=== PATIENT | female | born 1955 | race Caucasian/White ===

== ENCOUNTER → 2017-07-21 | Outpatient (REF) | payer OTHER, BC | LOC: M LAB REF 09:46 | PROVIDERS: ATTEND Physician Assistant Medical | DX: N39.0 Urinary tract infection, site not specified (principal) ==

== ENCOUNTER 2018-02-27 09:17 | Day surgery (SDC) | payer BC, OTHER ==
[2018-02-27] MEDS ORDERED: NS 1,000 ML IV (11:00)
[2018-02-27] MEDS ORDERED: PROPOFOL 500 MG/50 ML VIAL As Ordered (11:24)
[2018-02-27] MEDS ORDERED: LIDOCAINE 2% INJ 100 MG/5 ML SDV (FOR ANES.) As Ordered (11:24)
== END 2018-02-27 12:14 | disposition home or self-care (01) ==
LOC: M OPP 09:17
DX: Z12.11 Encounter for screening for malignant neoplasm of colon (principal); Z86.010 Personal history of colon polyps; Z80.0 Family history of malignant neoplasm of digestive organs; D12.2 Benign neoplasm of ascending colon; D12.5 Benign neoplasm of sigmoid colon; K57.30 Diverticulosis of large intestine without perforation or abscess without bleeding; I10 Essential (primary) hypertension; E04.9 Nontoxic goiter, unspecified; K21.9 Gastro-esophageal reflux disease without esophagitis; M19.90 Unspecified osteoarthritis, unspecified site; Z85.828 Personal history of other malignant neoplasm of skin; Z96.653 Presence of artificial knee joint, bilateral; Z88.0 Allergy status to penicillin; Z88.8 Allergy status to other drugs, medicaments and biological substances; Z91.048 Other nonmedicinal substance allergy status; Z79.899 Other long term (current) drug therapy; Z80.8 Family history of malignant neoplasm of other organs or systems; Z80.51 Family history of malignant neoplasm of kidney
CPT/HCPCS: 45385

== ENCOUNTER 2018-03-13 20:12 | Emergency (ER) | payer BC, OTHER ==
[2018-03-13] MEDS: MAGIC MOUTHWASH SUSPENSION BTL SS (22:37)
== END 2018-03-13 23:50 | disposition home or self-care (01) ==
LOC: M ED 20:12
DX: Z77.098 Contact with and (suspected) exposure to other hazardous, chiefly nonmedicinal, chemicals (principal); I10 Essential (primary) hypertension; Z88.0 Allergy status to penicillin; Z88.8 Allergy status to other drugs, medicaments and biological substances; Z91.048 Other nonmedicinal substance allergy status; Z79.899 Other long term (current) drug therapy
CPT/HCPCS: 87880

== ENCOUNTER → 2018-06-21 | Outpatient (REF) | payer BC, OTHER | LOC: M LAB REF 16:30 | DX: R30.0 Dysuria (principal) | CPT/HCPCS: 87086 ==

== ENCOUNTER 2018-12-18 21:25 | Emergency (ER) | payer BC, OTHER ==
[~2018-12-18] VITALS: Ht 167.6 cm; Wt 104.5 kg
[~2018-12-18 21:25] MED LIST: ACET30TAB PO; HYDR25TAB PO; MAGICMW MT; MULT1TAB10 PO
[2018-12-18] MEDS ORDERED: NS 1,000 ML IV ONE (21:45)
[2018-12-18] MEDS ORDERED: KETOROLAC 30 MG/ML VIAL (J1885) IV ONE (21:45)
[2018-12-18] MEDS ORDERED: ONDANSETRON 4MG/2ML VIAL (J2405) IV ONE (21:45)
[2018-12-18 22:45] LABS: BASO % 0.4 % (0.0-1.0); EOS % 0.2 % (0.0-3.0); HEMOGLOBIN 14.5 g/dl (12.0-15.5); LYMPH # 0.3 10^3/uL (1.5-4.5); LYMPH % 5.6 % (24.0-44.0); MEAN CORPUSCULAR VOLUME 90.9 fl (80.0-96.0); MONO # 0.4 10^3/uL (0.0-0.8); MONO % 7.5 % (0.0-5.0); NEUTROPHILS # 4.4 10^3/uL (1.8-7.7); NEUTROPHILS % 85.5 % (36.0-66.0); PLATELET COUNT, AUTOMATED 208 10^3/uL (150-450); RED BLOOD COUNT 4.84 10^6/uL (4.00-5.40); WHITE BLOOD COUNT 5.2 10^3/uL (4.0-10.0)
[2018-12-18 22:58] LABS: ALBUMIN 4.1 GM/DL (3.2-5.2); ALT/SGPT 61 U/L (12-78); BILIRUBIN,DIRECT 0.2 MG/DL (0.0-0.2); BILIRUBIN,TOTAL 0.5 MG/DL (0.2-1.0); BLOOD UREA NITROGEN 13 MG/DL (7-18); CALCIUM LEVEL 9.1 MG/DL (8.8-10.2); CARBON DIOXIDE LEVEL 29 MEQ/L (21-32); CHLORIDE LEVEL 100 MEQ/L (98-107); CREATININE FOR GFR 0.84 MG/DL (0.55-1.30); GLOMERULAR FILTRATION RATE > 60.0 (>45); GLUCOSE, FASTING 149 MG/DL (70-100); LIPASE 53 U/L (73-393); POTASSIUM SERUM 3.8 MEQ/L (3.5-5.1); SODIUM LEVEL 139 MEQ/L (136-145); TOTAL PROTEIN 7.6 GM/DL (6.4-8.2)
[2018-12-18] MEDS ORDERED: ZOFR4TAB16 PO (23:23)
[2018-12-18 23:52] VITALS: BP 121/65
--- NOTE | 2018-12-19 02:03 | REP ---
Clinical: Four chest and abdominal pain . Comparison: 03/08/2016. Technique: PA and lateral. Findings: The mediastinum and cardiac silhouette are normal. The lung echeverria are clear and without acute consolidation, effusion, or pneumothorax. The skeletal structures are intact and normal. Impression: 1. No acute cardiopulmonary process. Electronically Signed by Percy Angel MD 12/19/2018 01:55 A
== END 2018-12-19 00:14 | disposition home or self-care (01) ==
LOC: M ED 21:25 → EDBD 21:25 → M ED 12-19 00:14
DX: R11.2 Nausea with vomiting, unspecified (principal); I10 Essential (primary) hypertension; Z79.899 Other long term (current) drug therapy; Z88.0 Allergy status to penicillin; Z88.8 Allergy status to other drugs, medicaments and biological substances; Z91.048 Other nonmedicinal substance allergy status
CPT/HCPCS: 71046; 80048; 80076; 83690; 85025; 96374; 96375; 99284; J1885; J2405

== ENCOUNTER → 2021-07-22 | Outpatient (CLI) | payer BC, OTHER ==
[~2021-07-22] MED LIST changes: +ACET-716 PO; -ACET30TAB PO; +HYDR-3490 PO; -HYDR25TAB PO; +LISI2.5T9; +ZOFR4TAB16 PO
== END ==
LOC: M LABSMTC 10:34
PROVIDERS: ATTEND Anesthesiology
DX: Z01.812 Encounter for preprocedural laboratory examination (principal); Z20.822 Contact with and (suspected) exposure to COVID-19

== ENCOUNTER 2021-07-27 06:49 | Day surgery (SDC) | payer MEDICARE, BC, OTHER ==
[~2021-07-27] VITALS: Ht 167.6 cm; Wt 107.7 kg
[~2021-07-27 06:49] MED LIST changes: +NS 1,000 ML IV ONE
--- OUTSIDE RECORDS SUMMARY | 2021-07-27 06:51 | CCD | Continuity of Care Document ---
Author Author Yanni IRIZARRY D.O. Organization Unknown Address [address] [place] [id number] Phone [phone] Problems Active Problems Provider Date Non-toxic multinodular goiter Alex Irizarry D.O., MINA O nset: 05/27/2011 Obesity Alex Irizarry D.O., ERICAFP Onset: 06/11 Essential hypertension Alex Irizarry D.O., ERICAFP Onset: 11/21/2018 Sensory hearing loss Alex Irizarry D.O., FAAFP Onset: 09/2019 Note: LEFT EAR Impaired fasting glycemia Casey Pereyra RPA Onset: 04/09 Hearing loss in left ear Casey Pereyra RPA Onset: 04/21 Social History Type Date Description Comments Sex Unknown ETOH Use Rarely consumes wine Tobacco Use Start: Unknown Patient has never smoked Recreational Drug Use Denies Drug Use Smoking Status Reviewed: 11/06/20 Patient has never smoked Exercise Type/Frequency Does not currently exerc ise Allergies and adverse reactions Active Allergies Criticality Reaction | Severity Comments Date Penicillin Unable to assess criticality as a child 03/08/2008 Medications Active Medications SIG Qnty Indications Ordering Provide r Date Moderna Covid-19 Vaccine 100mcg/0.5ML Suspension pt recieved both Alex Irizarry D.O., F AAFP 04/02/2021 Acetaminophen-Codeine #3 300-30mg Tablets 1 by mouth as needed pain 30tabs Alex Irizarry D.O., FAAFP 09/08/2019 Shingrix 50mcg/0.5ML Suspension Re c 1 intramuscular today repeat in 2-6 months 1units Alex Irizarry D.O., [facility] 09/28/2018 Lisinopril 2.5mg Tablets Take 1 Tablet By Mouth Daily 90tabs Alex Irizarry D.O., [facility] Hydrochlorothiazide 12.5mg Capsule s Take 1 Capsule By Mouth Every Day. Maximum Daily Dose Is 1 90caps [facility] 08/04/2017 Oscal Vit D 600 Tablets take two tablets once daily Alex [facility] D.O., [facility] One Daily Womens 50+ 50+ Tablets 1 by mouth every day Unknown Advil 200mg Tablets 1 twice a day as needed Unknown Medications Administered in Office Medication SIG Qnty Indications Ordering Provider Date Injection (SC)/(Im) Injection Soha Bowden D., EVELYN-Addi 07/15/2015 Injection (SC)/(Im) Injection Alex Irizarry D.O., [facility] 07/05/2013 Injection (SC)/(Im) Injection Alex Irizarry D.O., [facility] 07/20/2012 Injection (SC)/(Im) Injection Alex Irizarry D.O., [facility] 09/09/2011 Injection (SC)/(Im) Injection Jeri Jesus D.O. 07/13/2010 Injection Subcutaneous Or Intramuscular Injection Alex Irizarry D.O., [facility] 09/19/2008 Immunizations CPT Code Status Date Vaccine Lot # [id number] Given 07/16/2021 Influenza Virus Vaccine, Quadrivalent, Slit Virus, Im Use 3Y & Up [id number] 32458 Given 07/31/2020 Influenza Virus Vaccine, Quadrivalent, Slit Virus, Im Use 3Y & Up [id number] 73667 Given 09/20/2019 Influenza Virus Vaccine, Quadrivalent, Slit Virus, Im Use 3Y & Up [id number] 27747 Given 06/22/2018 Influenza Virus Vaccine, Quadrivalent, Slit Virus, Im Use 3Y & Up [id number] 40040 Given 08/04/2017 Influenza Virus Vaccine, Quadrivalent, Slit Virus, Im Use 3Y & Up [id number] 03335 Given 07/20/2016 Influenza Virus Vaccine, Quadrivalent, Slit Virus, Im Use 3Y & Up [id number] 01356 Given 07/15/2015 Influenza Virus Vac. Split Virus Individuals 3 Years And Above [id number] 65814 Given 07/05/2013 Influenza Virus Vac. Split Virus Individuals 3 Years And Above [id number] 19076 Given 07/20/2012 Influenza Virus Vac. Split Virus Individuals 3 Years And Above [id number] 89208 Given 09/09/2011 Influenza Virus Vac. Split Virus Individuals 3 Years And Above [id number] 50225 Given 07/13/2010 Influenza Virus Vac. Split Virus Individuals 3 Years And Above [id number] [id number] Given 09/19/2008 Influenza Virus Vac. Split Virus Individuals 3 Years And Above [id number] Vital Signs Date Vital Result Comment 07/16/2021 2:01pm BP Systolic 108 mmHg BP Diastolic 78 mmHg Body Temperature 97.6 F Heart Rate 72 /min Respiratory Rate 16 /min Height 66 inches 5'6" Weight 238.00 lb [place] Body Weight 130 lb BMI (Body Mass Index) 38.4 kg/m2 O2 % BldC Oximetry 96 % 04/27/2021 1:27pm BP Systolic 140 mmHg BP Diastolic 80 mmHg Body Temperature 97.3 F Heart Rate 76 /min Respiratory Rate 17 /min Height 66 inches 5'6" Weight 242.00 lb [place] Body Weight 130 lb BMI (Body Mass Index) 39.1 kg/m2 O2 % BldC Oximetry 98 % (AT Rest), (Room Air ) Results Test Acquired Date Facility Test Result H/L Range Note Laboratory test finding 07/16/2021 [facility] Hemoglobin A1c 5.7 % 4.50-6.20 CBC 07/16/2021 [facility]/Inhouse WBC 6.3 10E3/uL 4.1 - 10.9 1 RBC 4.90 10E6/uL 4.20 - 6.30 HGB 15.0 g/dL 12.0 - 18.0 HCT 44.9 % 37.0 - 51.0 MCV 91.6 fL 80.0 - 97.0 MCH 30.6 pg 26.0 - 32.0 MCHC 33.4 g/dL 31.0 - 36.0 PLT 249 10E3/uL 140 - 440 RDW-CV 13.4 % 11.5 - 14.5 Lym% 24.3 % 10.0 - 58.5 Neut% 66.1 % 37.0 - 92.0 MXD% 9.6 % 0.1 - 24.0 Lym# 1.5 10E3/uL 0.6 - 4.1 Neut# 4.2 % 2.0 - 7.8 MXD# 0.6 10E3/uL 0.0 - 1.8 MPV 11.3 fL 9.0 - 13.0 CMP 07/16/2021 [facility]Inhouse Glu 99 mg/dL 70 - 110 BUN 20 mg/dL 8 - 23 Creat 0.8 mg/dL 0.5 - 1.0 BUN/Creatinine Ratio 24.1 Calc Na 142 mmol/L 136 - 145 K 4.1 mmol/L 3.5 - 5.1 CL 100.0 mmol/L 98.0 - 107.0 Co2 24.5 mmol/L 22.0 - 29.0 CA 9.7 mg/dL 8.6 - 10.2 TP 7.0 g/dL 6.6 - 8.7 Alb 4.8 g/dL 3.4 - 4.8 A/G Ratio 2.2 Calc Globulin 2.2 Calc Alp 94.7 U/L 35 - 129 Alt (SGPT) 37 U/L 0 - 41 Ast (Sgot) 27 U/L 0 - 40 Tbili 0.73 mg/dL 0.0 - 1.2 Osmolality-Calculated 285.7 Calc Anion Gap 21.6 mmol/L eGFR 90 # Calc 2 eGFR Non-Afr. Singaporean 77 # Calc 3 Laboratory test finding 07/16/2021 [facility]/Inhouse CK 95 U/L 26 - 192 U/A DIP FPA 04/02/2021 [facility] Color Urine YELLOW Yellow Appearance CLEAR Clear Specific [place] 1.025 1.00-1.03 PH Urine 5.0 5.0-8.0 Glucose Urine NEG Negative Bilirubin Urine NEG Negative Ketones NEG Negative Blood Urine NEG Negative Protein Urine NEG Negative Urobilinogen 0.2 EU/dl 0.2-1.0 Nitrite NEG Negative Leukocytes NEG Negative Laboratory test finding 04/02/2021 [facility] Hemoglobin A1c 5.9 % 4.50-6.20 CBC 04/02/2021 [facility]PA/Inhouse WBC 5.9 10E3/uL 4.1 - 10.9 4 RBC 4.59 10E6/uL 4.20 - 6.30 HGB 14.2 g/dL 12.0 - 18.0 HCT 42.5 % 37.0 - 51.0 MCV 92.6 fL 80.0 - 97.0 MCH 30.9 pg 26.0 - 32.0 MCHC 33.4 g/dL 31.0 - 36.0 PLT 247 10E3/uL 140 - 440 RDW-CV 13.3 % 11.5 - 14.5 Lym% 20.2 % 10.0 - 58.5 Neut% 69.8 % 37.0 - 92.0 MXD% 10.0 % 0.1 - 24.0 Lym# 1.2 10E3/uL 0.6 - 4.1 Neut# 4.1 % 2.0 - 7.8 MXD# 0.6 10E3/uL 0.0 - 1.8 MPV 11.2 fL 9.0 - 13.0 Laboratory test finding 04/02/2021 [facility]/Inhouse CK 189 U/L 26 - 192 CMP 04/02/2021 [facility]house Glu 145 mg/dL High 70 - 110 BUN 23 mg/dL 8 - 23 Creat 0.9 mg/dL 0.5 - 1.0 BUN/Creatinine Ratio 24.7 CALC Na 140 mmol/L 136 - 145 K 3.7 mmol/L 3.5 - 5.1 CL 100.2 mmol/L 98.0 - 107.0 Co2 32.0 mmol/L High 22.0 - 29.0 CA 9.6 mg/dL 8.6 - 10.2 TP 6.8 g/dL 6.6 - 8.7 Alb 4.6 g/dL 3.4 - 4.8 A/G Ratio 2.1 CALC Globulin 2.2 CALC Alp 98.2 U/L 35 - 129 Alt (SGPT) 27 U/L 0 - 41 Ast (Sgot) 21 U/L 0 - 40 Tbili 0.68 mg/dL 0.0 - 1.2 Osmolality-Calculated 285.3 CALC Anion Gap 11 mmol/L eGFR 78 # Calc 5 eGFR Non-Afr. Singaporean 67 # Calc 6 Microalb/Creat Ratio 04/02/2021 [facility] Alb 10 mg/L 1 - 30 Creatinine, Urine 300 mg/dL 10 - 300 A/C Ratio <30 mg/g % U/A DIP FPA 04/02/2021 [facility] Color Urine <pending> Yellow Appearance <pending> Clear Specific [place] <pending> 1.00-1.03 PH Urine <pending> 5.0-8.0 Glucose Urine <pending> Negative Bilirubin Urine <pending> Negative Ketones <pending> Negative Blood Urine <pending> Negative Protein Urine <pending> Negative Urobilinogen <pending> EU/dl 0.2-1.0 Nitrite <pending> Negative Leukocytes <pending> Negative Comment 1 <pending> Laboratory test finding 04/02/2021 [facility] Hemoglobin A1c <pending> % 4.50-6.20 1 NORMAL RANGES Age WBC RBC HGB HCT MCV PLT Adult M 4.1-10.9 4.20-6.30 12.0-18.0 37.0-51.0 80-97 140-440 Adult F 4.1-10.9 4.04-5.48 12.0-18.0 37.0-51.0 80-97 140-440 0 -1 Yr 5.0-20.0 3.9-5.9 15-18 MV: 44 MV: 91 MV: 277 2-9 Yr. 6.0-17.0 3.8-5.4 11-13 MV: 37 MV: 78 MV: 300 10 Yrs. 5.0-13.0 3.8-5.4 12-15 MV: 39 MV: 80 MV: 250 NOTE: * FOR ADULT BLACK MALES AND FEMALES, NORMAL WBC IS 2.9-7.7 K/ML * FOR ADULT BLACK MALES AND FEMALES, NORMAL RBC,HGB, AND HCT IS 5% LESS SOURCE FOR DATA: [employer] 1800 OPERATION MANUAL( AUTOMATED BLOOD COUNTS AND DIFF.) APPENDIX B-3 CHRONIC KIDNEY DISEASE STAGING PER NKF: MALE GFR INTERPRETATION: 20-49 YRS: >60 mL/min Normal 50-59 YRS: >56 mL/min Normal 60-69 YRS: >49 mL/min Normal 70-79 YRS: >42 mL/min Normal 80 and above >35 mL/min Normal FEMALE GRF INTERPRETATION: 20-39 YRS: >60 mL/min Normal 40-49 YRS: >58 mL/min Normal 50-59 YRS: >51 mL/min Normal 60-69 YRS: >45 mL/min Normal 70-79 YRS: >39 mL/min Normal 80 and above >32 mL/min Normal 2 CKD-EPI 3 CKD-EPI 4 NORMAL RANGES Age WBC RBC HGB HCT MCV PLT Adult M 4.1-10.9 4.20-6.30 12.0-18.0 37.0-51.0 80-97 140-440 Adult F 4.1-10.9 4.04-5.48 12.0-18.0 37.0-51.0 80-97 140-440 0 -1 Yr 5.0-20.0 3.9-5.9 15-18 MV: 44 MV: 91 MV: 277 2-9 Yr. 6.0-17.0 3.8-5.4 11-13 MV: 37 MV: 78 MV: 300 10 Yrs. 5.0-13.0 3.8-5.4 12-15 MV: 39 MV: 80 MV: 250 NOTE: * FOR ADULT BLACK MALES AND FEMALES, NORMAL WBC IS 2.9-7.7 K/ML * FOR ADULT BLACK MALES AND FEMALES, NORMAL RBC,HGB, AND HCT IS 5% LESS SOURCE FOR DATA: [employer] 1800 OPERATION MANUAL( AUTOMATED BLOOD COUNTS AND DIFF.) APPENDIX B-3 5 CKD-EPI 6 CKD-EPI Procedures Date Code Description Status 07/16/2021 64365 Office/Outpatient Established Mo d MDM 30-39 Min Completed 04/27/2021 54074 Office/Outpatient Established Lo w MDM 20-29 Min Completed 04/02/2021 92298 Office/Outpatient Established Mo d MDM 30-39 Min Completed Medical Devices Description No Information Available Encounters Type Date Location Provider Dx Diagnosis Office Visit 07/16/2021 1:30p [place] [facility] Kelly Pastor, FAAFP I10 Essential (primary) hypertension R73.09 Other abnormal glucose Z23 Encounter for immunization Office Visit 04/27/2021 1:30p [place] [facility] I10 Essential (primary) hypertension Z12.39 Encounter for oth screening for malignant neoplasm of breast E04.2 Nontoxic multinodular goiter Office Visit 04/02/2021 1:30p [place] [facility] Kelly Pastor, FAAFP I10 Essential (primary) hypertension E04.2 Nontoxic multinodular goiter Z68.39 Body mass index [BMI] 39.0-3 9.9, adult R73.01 Impaired fasting glucose Assessments Date Code Description Provider 07/16/2021 I10 Essential (primary) hypertension Alex Irizarry D.O., FAAFP 07/16/2021 R73.09 Other abnormal glucose Alex Irizarry D.O., FAAFP 07/16/2021 Z23 Encounter for immunization Belinda Irizarry D.O., FAAFP 04/27/2021 I10 Essential (primary) hypertension Yanni Prado FNP-BC 04/27/2021 Z12.39 Encounter for other screening for malignant neoplasm of breast Yanni Prado FNP-BC 04/27/2021 E04.2 Nontoxic multinodular goiter Rou jarrods, Yanni Garcia, [facility]- 04/02/2021 I10 Essential (primary) hypertension Alex Irizarry D.O., [facility] 04/02/2021 E04.2 Nontoxic multinodular goiter Migue Irizarry D.O., [facility] 04/02/2021 Z68.39 Body mass index [BMI] 39.0-39.9, adult Alex Irizarry D.O., [facility] 04/02/2021 R73.01 Impaired fasting glucose Alex Irizarry D.O., [place] Plan of Treatment Future Appointment(s):* 11/05/2021 1:15 pm - Alex Irizarry D.O., FAAFP at [facility] Functional Status Description No Information Available Mental Status Description No Information Available Referrals Description No Information Available
--- OUTSIDE RECORDS SUMMARY | 2021-07-27 06:51 | CCD | Continuity of Care Document ---
Author Author Yanni SAUCEDO [facility] Organization Unknown Address [address] [facility] [place] [address] Phone [phone] Problems Active Problems Provider Date Non-toxic multinodular goiter Alex Nunez D.O., [place] O nset: 05/27/2011 Obesity Alex Nunez D.O., ERICAFP Onset: 06/11 Essential hypertension Alex Nunez D.O., FAAFP Onset: 11/21/2018 Sensory hearing loss Alex Nunez D.O., FAAFP Onset: 09/2019 Note: LEFT EAR [...] Exercise Type/Frequency Does not currently exerc ise Allergies, Adverse Reactions, Alerts Active Allergies Reaction Severity Comments Date Penicillin as a child 03/08/2008 Medications Active Medications SIG Qnty Indications Ordering Provide r Date Moderna Covid-19 Vaccine 100mcg/0.5ML Suspension pt recieved both Alex Nunez D.O., F AAFP 04/02/2021 Acetaminophen-Codeine #3 300-30mg Tablets 1 by mouth as needed pain 30tabs Alex Nunez D.O., FAAFP 09/08/2019 Shingrix 50mcg/0.5ML Suspension Re c 1 intramuscular today repeat in 2-6 months 1units Alex Nunez D.O., FAAFP 09/28/2018 Lisinopril 2.5mg Tablets take 1 tablet by mouth daily. 90tabs Alex Nunez D.O., [facility] Hydrochlorothiazide 12.5mg Capsule s take 1 capsule by mouth every day. 90caps [facility] D.O ., [facility] 08/04/2017 Oscal Vit D 600 Tablets take two tablets once daily Alex [facility]z D.O., [facility] One Daily Womens 50+ 50+ Tablets 1 by mouth every day Unknown Advil 200mg Tablets 1 twice a day as needed Unknown Medications Administered in Office Medication SIG Qnty Indications Ordering Provider Date Injection (SC)/(Im) Injection Soha Bowden D., TUTORING ASSISTANT-C 07/15/2015 Injection (SC)/(Im) Injection [facility].O., [facility] 07/05/2013 Injection (SC)/(Im) Injection [facility].O., [facility] 07/20/2012 Injection (SC)/(Im) Injection Alex Nunez D.O., [facility] 09/09/2011 Injection (SC)/(Im) Injection Jeri Jesus D.O. 07/13/2010 Injection Subcutaneous Or Intramuscular Injection Alex Nunez D.O., [facility] 09/19/2008 Immunizations CPT Code Status Date Vaccine Lot # [id number] Given 07/31/2020 Influenza Virus Vaccine, Quadrivalent, Slit Virus, Im Use 3Y & Up [id number] 04753 Given 09/20/2019 Influenza Virus Vaccine, Quadrivalent, Slit Virus, Im Use 3Y & Up [id number] 45618 Given 06/22/2018 Influenza Virus Vaccine, Quadrivalent, Slit Virus, Im Use 3Y & Up [id number] 08510 Given 08/04/2017 Influenza Virus Vaccine, Quadrivalent, Slit Virus, Im Use 3Y & Up [id number] 82250 Given 07/20/2016 Influenza Virus Vaccine, Quadrivalent, Slit Virus, Im Use 3Y & Up [id number] 75443 Given 07/15/2015 Influenza Virus Vac. Split Virus Individuals 3 Years And Above [id number] 57476 Given 07/05/2013 Influenza Virus Vac. Split Virus Individuals 3 Years And Above [id number] 06054 Given 07/20/2012 Influenza Virus Vac. Split Virus Individuals 3 Years And Above [id number] 41083 Given 09/09/2011 Influenza Virus Vac. Split Virus Individuals 3 Years And Above [id number] 40733 Given 07/13/2010 Influenza Virus Vac. Split Virus Individuals 3 Years And Above [id number] 19537 Given 09/19/2008 Influenza Virus Vac. Split Virus Individuals 3 Years And Above [id number] Vital Signs Date Vital Result Comment 04/27/2021 1:27pm BP Systolic 140 mmHg BP Diastolic 80 mmHg Body Temperature 97.3 F Heart Rate 76 /min Respiratory Rate 17 /min Height 66 inches 5'6" Weight 242.00 lb [place] Body Weight 130 lb BMI (Body Mass Index) 39.1 kg/m2 O2 % BldC Oximetry 98 % (AT Rest), (Room Air ) 04/02/2021 1:39pm BP Systolic 124 mmHg BP Diastolic 72 mmHg Body Temperature 97.4 F Heart Rate 74 /min Respiratory Rate 18 /min Height 66 inches 5'6" Weight 244.00 lb [place] Body Weight 130 lb BMI (Body Mass Index) 39.4 kg/m2 O2 % BldC Oximetry 98 % Results Test Acquired Date Facility Test Result H/L Range Note U/A DIP FPA 04/[facility] Color Urine YELLOW Yellow Appearance CLEAR Clear Specific Bernie 1.025 1.00-1.03 PH Urine 5.0 5.0-8.0 Glucose Urine NEG Negative Bilirubin Urine NEG Negative Ketones NEG Negative Blood Urine NEG Negative Protein Urine NEG Negative Urobilinogen 0.2 EU/dl 0.2-1.0 Nitrite NEG Negative Leukocytes NEG Negative Laboratory test finding 04/02/2021 [facility] Hemoglobin A1c 5.9 % 4.50-6.20 CBC 04/02/2021 [facility]/Inhouse WBC 5.9 10E3/uL 4.1 - 10.9 1 RBC 4.59 10E6/uL 4.20 - 6.30 HGB [...] Gap 11 mmol/L eGFR 78 # Calc 2 eGFR Non-Afr. [place] 67 # Calc 3 Microalb/Creat Ratio 04/02/2021 [facility] Alb 10 mg/L 1 - 30 Creatinine, Urine 300 mg/dL 10 - 300 A/C Ratio <30 mg/g % U/A DIP FPA 04/02/2021 [facility] Color Urine <pending> Yellow Appearance <pending> Clear Specific Bernie <pending> 1.00-1.03 PH Urine <pending> 5.0-8.0 Glucose Urine <pending> Negative Bilirubin Urine <pending> Negative Ketones <pending> Negative Blood Urine <pending> Negative Protein Urine <pending> Negative Urobilinogen <pending> EU/dl 0.2-1.0 Nitrite <pending> Negative Leukocytes <pending> Negative Comment 1 <pending> Laboratory test finding 04/02/2021 [facility] Hemoglobin A1c <pending> % 4.50-6.20 Microalb/Creat Ratio 11/06/2020 [facility]/Inhouse Alb 10 mg/L 1 - 30 Creatinine, Urine 200 mg/dL 10 - 300 A/C Ratio <30 mg/g % U/A DIP FPA 11/06/2020 [facility] Color Urine YELLOW Yellow Appearance CLEAR Clear Specific Bernie 1.030 1.00-1.03 PH Urine 5.5 5.0-8.0 Glucose Urine NEG Negative Bilirubin Urine NEG Negative Ketones NEG Negative Blood Urine TRACE Negative Protein Urine NEG Negative Urobilinogen .2 EU/dl 0.2-1.0 Nitrite NEG Negative Leukocytes NEG Negative CBC 11/06/2020 [facility]Inhouse WBC 6.3 10E3/uL 4.1 - 10.9 4 RBC 4.79 10E6/uL 4.20 - 6.30 HGB 14.5 g/dL 12.0 - 18.0 HCT 43.9 % 37.0 - 51.0 MCV 91.6 fL 80.0 - 97.0 MCH 30.3 pg 26.0 - 32.0 MCHC 33.0 g/dL 31.0 - 36.0 PLT 243 10E3/uL 140 - 440 RDW-CV 13.0 % 11.5 - 14.5 Lym% 23.3 % 10.0 - 58.5 Neut% 64.0 % 37.0 - 92.0 MXD% 12.7 % 0.1 - 24.0 Lym# 1.5 10E3/uL 0.6 - 4.1 Neut# 4.0 % 2.0 - 7.8 MXD# 0.8 10E3/uL 0.0 - 1.8 MPV 11.1 fL 9.0 - 13.0 Laboratory test finding 11/06/2020 [facility] CK 111 U/L 26 - 192 CMP 11/06/2020 [facility] Glu 127 mg/dL High 70 - 110 BUN 22 mg/dL 8 - 23 Creat 1.3 mg/dL High 0.5 - 1.0 BUN/Creatinine Ratio 17.0 CALC Na 144 mmol/L 136 - 145 K 4.1 mmol/L 3.5 - 5.1 CL 102.8 mmol/L 98.0 - 107.0 Co2 27.4 mmol/L 22.0 - 29.0 CA 9.4 mg/dL 8.6 - 10.2 TP 6.8 g/dL 6.6 - 8.7 Alb 4.5 g/dL 3.4 - 4.8 A/G Ratio 1.9 CALC Globulin 2.4 CALC Alp 103.2 U/L 35 - 129 Alt (SGPT) 55 U/L High 0 - 41 Ast (Sgot) 29 U/L 0 - 40 Tbili 0.59 mg/dL 0.0 - 1.2 Osmolality-Calculated 292.3 CALC Anion Gap 18 mmol/L eGFR 50 # Calc 5 eGFR Non-Afr. [place] 43 # Calc 6 Lipid Panel 11/06/2020 [facility] Chol 161 mg/dL 0 - 200 Trig 187 mg/dL 40 - 200 HDL 57 mg/dL 45 - 65 LDL_C 67 Calc Low 75 - 129 Cho/HDL Ratio 2.8 CALC 1 NORMAL RANGES Age WBC RBC HGB [...] HCT IS 5% LESS SOURCE FOR DATA: [employer] 1800 OPERATION MANUAL( AUTOMATED BLOOD COUNTS AND DIFF.) APPENDIX B-3 2 CKD-EPI 3 CKD-EPI 4 NORMAL RANGES [...] HCT IS 5% LESS SOURCE FOR DATA: [employer] 1800 OPERATION MANUAL( AUTOMATED BLOOD COUNTS AND [...] mL/min Normal 80 and above >32 mL/min NormalCLASSIFICATION CHOLESTEROL FOR ADULTS CHILDREN/ADOLESCENTS* DESIRABLE: <200 MG/DL <170 MG/DL BORDER-LINE HIGH RISK: 200-239 MG/DL 170-199 MG/DL HIGH RISK: >240 MG/DL >200 MG/DL CLASS. FOR PRIMARY LDL CHOL PREVENTION: LDL CHOL-CHILD/ADOLESCENTS* DESIRABLE: <130 MG/DL <110 MG/DL BORDERLINE-HIGH RISK: 130-159 MG/DL 110-129 MG/DL HIGH RISK: >160 MG/DL >130 MG/DL *CHILDREN AND ADOLESCENTS REPRESENTS INDIVIDUALA AGED 2-19 YEARS EXCLUSIVE. 5 CKD-EPI 6 CKD-EPI Procedures Date Code Description Status 04/27/2021 61419 Office/Outpatient Established Lo w MDM 20-29 Min Completed 04/02/2021 04240 Office/Outpatient Established Mo d MDM 30-39 Min Completed 11/06/2020 96920 Office/Outpatient Established Mo d MDM 30-39 Min Completed Medical Devices Description No Information Available Encounters Type Date Location Provider Dx Diagnosis Office Visit 04/27/2021 1:30p Yanni Tneorio FNP-BC I10 Essential (primary) hypertension Z12.39 Encounter for oth screening for malignant neoplasm of breast E04.2 Nontoxic multinodular goiter Office Visit 04/02/2021 1:30p [place] [facility] Kelly Pastor, FAAFP I10 Essential (primary) hypertension E04.2 Nontoxic multinodular goiter Z68.39 Body mass index [BMI] 39.0-3 9.9, adult R73.01 Impaired fasting glucose Office Visit 11/06/2020 1:30p [place] [facility] Kelly Pastor, FAAFP I10 Essential (primary) hypertension E66.9 Obesity, unspecified R73.01 Impaired fasting glucose Assessments Date Code Description Provider 04/27/2021 I10 Essential (primary) hypertension Johan, Yanni Garcia, [facility] 04/27/2021 Z12.39 Encounter for other screening for malignant neoplasm of breast Johan, Yanni Garcia, [facility] 04/27/2021 E04.2 Nontoxic multinodular goiter Rou nds, Yanni Garcia, [facility] 04/02/2021 I10 Essential (primary) hypertension Alex Nunez D.O., [facility] 04/02/2021 E04.2 Nontoxic multinodular goiter Migue Nunez D.O., [facility] 04/02/2021 Z68.39 Body mass index [BMI] 39.0-39.9, adult Alex Nunez D.O., [facility] 04/02/2021 R73.01 Impaired fasting glucose Alex Nunez D.O., [facility] 11/06/2020 I10 Essential (primary) hypertension Alex Nunez D.O., FAAFP 11/06/2020 E66.9 Obesity, unspecified Alex Nunez D.O., FAAFP 11/06/2020 R73.01 Impaired fasting glucose Alex Nunez D.O., MINA Plan of Treatment Future Appointment(s):* 07/16/2021 1:30 pm - Alex Nunez D.O., [place]A at [facility] Functional Status Description No Information Available Mental Status Description No Information Available Referrals Description No Information Available
--- OUTSIDE RECORDS SUMMARY | 2021-07-27 06:51 | CCD | Continuity of Care Document ---
Author Author Yanni IRIZARRY D.O. Organization Unknown Address [address] [place] [address] Phone [phone] Problems Active Problems Provider Date Non-toxic multinodular [...] intramuscular today repeat in 2-6 months 1units lAex Irizarry D.O., [facility] 09/28/2018 Lisinopril 2.5mg Tablets Take 1 Tablet By Mouth Daily 90tabs Alex Irizarry D.O., [facility] Hydrochlorothiazide 12.5mg Capsule s Take 1 Capsule By Mouth Every Day. Maximum Daily Dose Is 1 90caps [facility] 08/04/2017 Oscal Vit D 600 Tablets take two tablets once daily Alex [facility].O., [facility] One Daily Womens 50+ 50+ Tablets 1 by mouth every day Unknown Advil 200mg Tablets 1 twice a day as needed Unknown Medications Administered in Office Medication SIG Qnty Indications Ordering Provider Date Injection (SC)/(Im) Injection Soha Bowden D., EVELYN-Addi 07/15/2015 Injection (SC)/(Im) Injection Alex Irizarry D.O., [facility] 07/05/2013 Injection (SC)/(Im) Injection Alex Irizarry D.O., [facility] 07/20/2012 Injection (SC)/(Im) Injection Alex Irizarry D.O., [facility] 09/09/2011 Injection (SC)/(Im) Injection Jeri Jesus D.O. 07/13/2010 Injection Subcutaneous Or Intramuscular Injection Alex Irizarry D.O., [facility] 09/19/2008 Immunizations CPT Code Status Date Vaccine Lot # [id number] Given 07/16/2021 Influenza Virus Vaccine, Quadrivalent, Slit Virus, Im Use 3Y & Up [id number] 67237 Given 07/31/2020 Influenza Virus Vaccine, Quadrivalent, Slit Virus, Im Use 3Y & Up [id number] 45308 Given 09/20/2019 Influenza Virus Vaccine, Quadrivalent, Slit Virus, Im Use 3Y & Up [id number] 15986 Given 06/22/2018 Influenza Virus Vaccine, Quadrivalent, Slit Virus, Im Use 3Y & Up [id number] 71716 Given 08/04/2017 Influenza Virus Vaccine, Quadrivalent, Slit Virus, Im Use 3Y & Up [id number] 43632 Given 07/20/2016 Influenza Virus Vaccine, Quadrivalent, Slit Virus, Im Use 3Y & Up [id number] 26114 Given 07/15/2015 Influenza Virus Vac. Split Virus Individuals 3 Years And Above [id number] 78912 Given 07/05/2013 Influenza Virus Vac. Split Virus Individuals 3 Years And Above [id number] 11706 Given 07/20/2012 Influenza Virus Vac. Split Virus Individuals 3 Years And Above [id number] 17711 Given 09/09/2011 Influenza Virus Vac. Split Virus Individuals 3 Years And Above [id number] 24717 Given 07/13/2010 Influenza Virus Vac. Split Virus Individuals 3 Years And Above [id number] 75808 Given 09/19/2008 Influenza Virus Vac. Split Virus Individuals 3 Years And Above [id number] Vital Signs Date Vital Result Comment 07/16/2021 2:01pm BP Systolic 108 mmHg BP Diastolic 78 mmHg Body Temperature 97.6 F Heart Rate 72 /min Respiratory Rate 16 /min Height 66 inches 5'6" Weight 238.00 lb [place] Body Weight 130 lb BMI (Body Mass Index) 38.4 kg/m2 O2 % BldC Oximetry 96 % 04/27/2021 1:27pm BP Systolic 140 mmHg BP Diastolic 80 mmHg Body Temperature 97.3 F Heart Rate 76 /min Respiratory Rate 17 /min Height 66 inches 5'6" Weight 242.00 lb [place] Body Weight 130 lb BMI (Body Mass Index) 39.1 kg/m2 O2 % BldC Oximetry 98 % (AT Rest), (Room Air ) Results Test Acquired Date Facility Test Result H/L Range Note Laboratory test finding 07/16/2021 [facility] Hemoglobin A1c 5.7 % 4.50-6.20 Laboratory test finding 07/16/2021 FPA/Inhouse CK <pending> U/A DIP FPA 04/02/2021 [facility] Color Urine YELLOW Yellow Appearance CLEAR Clear Specific [place] 1.025 1.00-1.03 PH Urine 5.0 5.0-8.0 Glucose Urine NEG Negative Bilirubin Urine NEG Negative Ketones NEG Negative Blood Urine NEG Negative Protein Urine NEG Negative Urobilinogen 0.2 EU/dl 0.2-1.0 Nitrite NEG Negative Leukocytes NEG Negative Laboratory test finding 04/02/2021 [facility] Hemoglobin A1c 5.9 % 4.50-6.20 CBC [...] eGFR 78 # Calc 2 eGFR Non-Afr. [place] 67 # Calc 3 Microalb/Creat Ratio 04/02/2021 FPA/Inhouse Alb 10 mg/L 1 - 30 Creatinine, Urine 300 mg/dL 10 - 300 A/C Ratio <30 mg/g % U/A DIP FPA 04/02/2021 [facility] Color Urine <pending> Yellow Appearance <pending> Clear Specific [place] <pending> 1.00-1.03 PH Urine <pending> 5.0-8.0 Glucose Urine <pending> Negative Bilirubin Urine <pending> Negative Ketones <pending> Negative Blood Urine <pending> Negative Protein Urine <pending> Negative Urobilinogen <pending> EU/dl 0.2-1.0 Nitrite <pending> Negative Leukocytes <pending> Negative Comment 1 <pending> Laboratory test finding 04/02/2021 [facility] Hemoglobin A1c <pending> % 4.50-6.20 [...] HCT IS 5% LESS SOURCE FOR DATA: [employer] 1800 OPERATION MANUAL( AUTOMATED BLOOD COUNTS AND DIFF.) APPENDIX B-3 2 CKD-EPI 3 CKD-EPI Procedures Date Code Description Status 07/16/2021 92683 Office/Outpatient Established Mo d MDM 30-39 Min Completed 04/27/2021 97179 Office/Outpatient Established Lo w MDM 20-29 Min Completed 04/02/2021 46918 Office/Outpatient Established Mo d MDM 30-39 Min Completed Medical Devices Description No Information Available Encounters Type Date Location Provider Dx Diagnosis Office Visit 07/16/2021 1:30p [place] [facility] Kelly Pastor, FAAFP I10 Essential (primary) hypertension R73.09 Other abnormal glucose Office Visit 04/27/2021 1:30p [place] [facility] Yanni Prado FNP-BC I10 Essential (primary) hypertension Z12.39 Encounter for oth screening for malignant neoplasm of breast E04.2 Nontoxic multinodular goiter Office Visit 04/02/2021 1:30p [place] [facility] Kelly Pastor, FAAFP I10 Essential (primary) hypertension E04.2 Nontoxic multinodular goiter Z68.39 Body mass index [BMI] 39.0-3 9.9, adult R73.01 Impaired fasting glucose Assessments Date Code Description Provider 07/16/2021 I10 Essential (primary) hypertension Alex Irizarry D.O., [facility]FP 07/16/2021 R73.09 Other abnormal glucose Alex Irizarry D.O., [facility] 04/27/2021 I10 Essential (primary) hypertension Yanni Prado FNP-BC 04/27/2021 Z12.39 Encounter for other screening for malignant neoplasm of breast Yanni Prado FNP-BC 04/27/2021 E04.2 Nontoxic multinodular goiter Rou risYanni FNP-BC 04/02/2021 I10 Essential (primary) hypertension Alex Irizarry D.O., [facility] 04/02/2021 E04.2 Nontoxic multinodular goiter Migue Irizarry D.O., [facility] 04/02/2021 Z68.39 Body mass index [BMI] 39.0-39.9, adult Alex Irizarry D.O., [facility] 04/02/2021 R73.01 Impaired fasting glucose Alex Irizarry D.O., [facility] Plan of Treatment Future Appointment(s):* 11/05/2021 1:15 pm - Alex Irizarry D.O., FAAFP at [facility] Functional Status Description No Information Available Mental Status Description No Information Available Referrals Description No Information Available
--- OUTSIDE RECORDS SUMMARY | 2021-07-27 06:51 | CCD | Continuity of Care Document ---
Author Author Yanni IRIZARRY D.O. Organization Unknown Address [address] [place] [id number] Phone [phone] Problems Active Problems Provider Date Non-toxic multinodular [...] in 2-6 months 1units Alex Irizarry D.O., [facility] 09/28/2018 Lisinopril 2.5mg Tablets Take 1 Tablet By Mouth Daily 90tabs Alex Irizarry D.O., [facility] Hydrochlorothiazide 12.5mg Capsule s Take 1 Capsule By Mouth Every Day. Maximum Daily Dose Is 1 90caps [facility]., [facility] 08/04/2017 Oscal Vit D 600 Tablets take two tablets once daily [facility].O[facility] One Daily Womens 50+ 50+ Tablets 1 by mouth every day Unknown Advil 200mg Tablets 1 twice a day as needed Unknown Medications Administered in Office Medication SIG Qnty Indications Ordering Provider Date Injection (SC)/(Im) Injection Soha Bowden D., EVLEYN-Addi 07/15/2015 Injection (SC)/(Im) Injection Alex Irizarry D.O., [facility] 07/05/2013 Injection (SC)/(Im) Injection Alex Irizarry D.O., [facility] 07/20/2012 Injection (SC)/(Im) Injection Alex Irizarry D.O., [facility] 09/09/2011 Injection (SC)/(Im) Injection Jeri Jesus D.O. 07/13/2010 Injection Subcutaneous Or Intramuscular Injection Alex Irizarry D.O., [facility] 09/19/2008 Immunizations CPT Code Status Date Vaccine Lot # [id number] Given 07/16/2021 Influenza Virus Vaccine, Quadrivalent, Slit Virus, Im Use 3Y & Up [id number] 31748 Given 07/31/2020 Influenza Virus Vaccine, Quadrivalent, Slit Virus, Im Use 3Y & Up [id number] 16369 Given 09/20/2019 Influenza Virus Vaccine, Quadrivalent, Slit Virus, Im Use 3Y & Up [id number] 87764 Given 06/22/2018 Influenza Virus Vaccine, Quadrivalent, Slit Virus, Im Use 3Y & Up [id number] 54862 Given 08/04/2017 Influenza Virus Vaccine, Quadrivalent, Slit Virus, Im Use 3Y & Up [id number] 69221 Given 07/20/2016 Influenza Virus Vaccine, Quadrivalent, Slit Virus, Im Use 3Y & Up [id number] 50190 Given 07/15/2015 Influenza Virus Vac. Split Virus Individuals 3 Years And Above [id number] 18361 Given 07/05/2013 Influenza Virus Vac. Split Virus Individuals 3 Years And Above [id number] 15290 Given 07/20/2012 Influenza Virus Vac. Split Virus Individuals 3 Years And Above [id number] 39261 Given 09/09/2011 Influenza Virus Vac. Split Virus Individuals 3 Years And Above [id number] 05540 Given 07/13/2010 Influenza Virus Vac. Split Virus Individuals 3 Years And Above [id number] 19038 Given 09/19/2008 Influenza Virus Vac. Split Virus Individuals 3 Years And Above 34079 Vital Signs Date Vital Result Comment 07/16/2021 2:01pm BP Systolic 108 mmHg BP Diastolic 78 mmHg Body Temperature 97.6 F Heart Rate 72 /min Respiratory Rate 16 /min Height 66 inches 5'6" Weight 238.00 lb [place] Body Weight 130 lb BMI (Body Mass Index) 38.4 kg/m2 O2 % BldC Oximetry 96 % 04/27/2021 1:27pm BP Systolic 140 mmHg BP Diastolic 80 mmHg Body Temperature 97.3 F Heart Rate 76 /min Respiratory Rate 17 /min Height 66 inches 5'6" Weight 242.00 lb [place] Body Weight 130 lb BMI (Body Mass Index) 39.1 kg/m2 O2 % BldC Oximetry 98 % (AT Rest), (Room Air ) Results Test Acquired Date Facility Test Result H/L Range Note U/A DIP FPA 04/02/2021 [facility] Color Urine YELLOW Yellow Appearance CLEAR Clear Specific [place] 1.025 1.00-1.03 PH Urine 5.0 5.0-8.0 Glucose Urine NEG Negative Bilirubin Urine NEG Negative Ketones NEG Negative Blood Urine NEG Negative Protein Urine NEG Negative Urobilinogen 0.2 EU/dl 0.2-1.0 Nitrite NEG Negative Leukocytes NEG Negative Laboratory test finding 04/02/2021 [facility] Hemoglobin A1c 5.9 % 4.50-6.20 [...] eGFR 78 # Calc 2 eGFR Non-Afr. [place]ian 67 # Calc 3 Microalb/Creat Ratio 04/02/2021 FPA/Inhouse Alb 10 mg/L 1 - 30 Creatinine, Urine 300 mg/dL 10 - 300 A/C Ratio <30 mg/g % U/A DIP FPA 04/02/2021 [facility] [place] [facility] Color Urine <pending> Yellow Appearance <pending> Clear Specific [place] <pending> 1.00-1.03 PH Urine <pending> 5.0-8.0 Glucose Urine <pending> Negative Bilirubin Urine <pending> Negative Ketones <pending> Negative Blood Urine <pending> Negative Protein Urine <pending> Negative Urobilinogen <pending> EU/dl 0.2-1.0 Nitrite <pending> Negative Leukocytes <pending> Negative Comment 1 <pending> Laboratory test finding 04/02/2021 [facility] Hemoglobin A1c <pending> % 4.50-6.20 1 [...] HCT IS 5% LESS SOURCE FOR DATA: [employer] 1800 OPERATION MANUAL( AUTOMATED BLOOD COUNTS AND DIFF.) APPENDIX B-3 2 CKD-EPI 3 CKD-EPI Procedures Date Code Description Status 04/27/2021 00305 Office/Outpatient Established Lo w MDM 20-29 Min Completed 04/02/2021 40946 Office/Outpatient Established Mo d MDM 30-39 Min Completed Medical Devices Description No Information Available Encounters Type Date Location Provider Dx Diagnosis Office Visit 04/27/2021 1:30p [place] [facility] Yanni Prado, [facility] I10 Essential (primary) hypertension Z12.39 Encounter for oth screening for malignant neoplasm of breast E04.2 Nontoxic multinodular goiter Office Visit 04/02/2021 1:30p [place] [facility] Kelly Pastor, FAAFP I10 Essential (primary) hypertension E04.2 Nontoxic multinodular goiter Z68.39 Body mass index [BMI] 39.0-3 9.9, adult R73.01 Impaired fasting glucose Assessments Date Code Description Provider 07/16/2021 I10 Essential (primary) hypertension Alex Irizarry D.O., [facility] 07/16/2021 R73.09 Other abnormal glucose Alex Irizarry D.O., [facility] 04/27/2021 I10 Essential (primary) hypertension Yanni Prado [facility] 04/27/2021 Z12.39 Encounter for other screening for malignant neoplasm of breast Johan Yanni Garcia [facility] 04/27/2021 E04.2 Nontoxic multinodular goiter [facility] Yanni Garcia [facility] 04/02/2021 I10 Essential (primary) hypertension Alex Irizarry D.O., [facility] 04/02/2021 E04.2 Nontoxic multinodular goiter Migue Irizarry D.O., [facility] 04/02/2021 Z68.39 Body mass index [BMI] 39.0-39.9, adult Alex Irizarry D.O., [facility] 04/02/2021 R73.01 Impaired fasting glucose Alex Irizarry D.O., [facility] Plan of Treatment No Information Available Functional Status Description No Information Available Mental Status Description No Information Available Referrals Description No Information Available
--- OUTSIDE RECORDS SUMMARY | 2021-07-27 06:51 | CCD | Continuity of Care Document ---
Author Author Yanni IRIZARRY D.O. Organization Unknown Address [address] [place] [address] Phone [phone] Problems Active Problems Provider Date Non-toxic multinodular [...] in 2-6 months 1units Alex Irizarry D.O., [facility] 09/28/2018 Lisinopril 2.5mg Tablets Take 1 Tablet By Mouth Daily 90tabs Alex Irizarry D.O., [facility] Hydrochlorothiazide 12.5mg Capsule s Take 1 Capsule By Mouth Every Day. Maximum Daily Dose Is 1 90caps [facility].O., [facility] 08/04/2017 Oscal Vit D 600 Tablets take two tablets once daily Alex [facility] D.O., [facility] One Daily Womens 50+ 50+ Tablets 1 by mouth every day Unknown Advil 200mg Tablets 1 twice a day as needed Unknown Medications Administered in Office Medication SIG Qnty Indications Ordering Provider Date Injection (SC)/(Im) Injection Soha Bowden D., EVELYN-Addi 07/15/2015 Injection (SC)/(Im) Injection Alex Irizarry D.O., [facility] 07/05/2013 Injection (SC)/(Im) Injection Alex Irizarry D.O., [facility] 07/20/2012 Injection (SC)/(Im) Injection Alex Irizarry D.O., [facility] 09/09/2011 Injection (SC)/(Im) Injection Jeri Jesus D.O. 07/13/2010 Injection Subcutaneous Or Intramuscular Injection Alex Irizrary D.O., [facility] 09/19/2008 Immunizations CPT Code Status Date Vaccine Lot # [id number] Given 07/16/2021 Influenza Virus Vaccine, Quadrivalent, Slit Virus, Im Use 3Y & Up [id number] 13908 Given 07/31/2020 Influenza Virus Vaccine, Quadrivalent, Slit Virus, Im Use 3Y & Up [id number] 14518 Given 09/20/2019 Influenza Virus Vaccine, Quadrivalent, Slit Virus, Im Use 3Y & Up [id number] 45923 Given 06/22/2018 Influenza Virus Vaccine, Quadrivalent, Slit Virus, Im Use 3Y & Up [id number] 44902 Given 08/04/2017 Influenza Virus Vaccine, Quadrivalent, Slit Virus, Im Use 3Y & Up [id number] 63903 Given 07/20/2016 Influenza Virus Vaccine, Quadrivalent, Slit Virus, Im Use 3Y & Up [id number] 20250 Given 07/15/2015 Influenza Virus Vac. Split Virus Individuals 3 Years And Above [id number] 41964 Given 07/05/2013 Influenza Virus Vac. Split Virus Individuals 3 Years And Above [id number] 17226 Given 07/20/2012 Influenza Virus Vac. Split Virus Individuals 3 Years And Above [id number] 35446 Given 09/09/2011 Influenza Virus Vac. Split Virus Individuals 3 Years And Above [id number] 53199 Given 07/13/2010 Influenza Virus Vac. Split Virus Individuals 3 Years And Above [id number] 54142 Given 09/19/2008 Influenza Virus Vac. Split Virus Individuals 3 Years And Above 97331 Vital Signs Date Vital Result Comment 07/16/2021 2:01pm BP Systolic 108 mmHg BP Diastolic 78 mmHg Body Temperature 97.6 F Heart Rate 72 /min Respiratory Rate 16 /min Height 66 inches 5'6" Weight 238.00 lb [place] Body Weight 130 lb BMI (Body Mass Index) 38.4 kg/m2 O2 % BldC Oximetry 96 % 04/27/2021 1:27pm BP Systolic 140 mmHg BP Diastolic 80 mmHg Body Temperature 97.3 F Heart Rate 76 /min Respiratory Rate 17 /min Height 66 inches 5'6" Weight 242.00 lb [place] Body Weight 130 lb BMI (Body Mass Index) 39.1 kg/m2 O2 % BldC Oximetry 98 % (AT Rest), (Room Air ) Results Test Acquired Date Facility Test Result H/L Range Note U/A DIP FPA 04/02/2021 [facility] Color Urine YELLOW Yellow Appearance CLEAR Clear Specific [place] 1.025 1.00-1.03 PH Urine 5.0 5.0-8.0 Glucose Urine NEG Negative Bilirubin Urine NEG Negative Ketones NEG Negative Blood Urine NEG Negative Protein Urine NEG Negative Urobilinogen 0.2 EU/dl 0.2-1.0 Nitrite NEG Negative Leukocytes NEG Negative Laboratory test finding 04/02/2021 [facility] Hemoglobin A1c 5.9 % [...] eGFR 78 # Calc 2 eGFR Non-Afr. [place]an 67 # Calc 3 Microalb/Creat Ratio 04/02/2021 FPA/Inhouse Alb 10 mg/L 1 - 30 Creatinine, Urine 300 mg/dL 10 - 300 A/C Ratio <30 mg/g % U/A DIP FPA 04/02/2021 [facility] [place] [facility] Color Urine <pending> Yellow Appearance <pending> Clear Specific [place] <pending> 1.00-1.03 PH Urine <pending> 5.0-8.0 Glucose Urine <pending> Negative Bilirubin Urine <pending> Negative Ketones <pending> Negative Blood Urine <pending> Negative Protein Urine <pending> Negative Urobilinogen <pending> EU/dl 0.2-1.0 Nitrite <pending> Negative Leukocytes <pending> Negative Comment 1 <pending> Laboratory test finding 04/02/2021 [facility] Hemoglobin A1c <pending> % 4.50-6.20 [...] CKD-EPI Procedures Date Code Description Status 04/27/2021 05064 Office/Outpatient Established Lo w MDM 20-29 Min Completed 04/02/2021 16926 Office/Outpatient Established Mo d MDM 30-39 Min Completed Medical Devices Description No Information Available Encounters Type Date Location Provider Dx Diagnosis Office Visit 04/27/2021 1:30p [place] [facility] Yanni Prado, [facility] I10 Essential (primary) hypertension Z12.39 Encounter for oth screening for malignant neoplasm of breast E04.2 Nontoxic multinodular goiter Office Visit 04/02/2021 1:30p [place] [facility] Essential (primary) hypertension E04.2 Nontoxic multinodular [...] [facility] 04/27/2021 E04.2 Nontoxic multinodular goiter [facility] Yanni Garcia [facility] 04/02/2021 I10 Essential (primary) hypertension Alex Irizarry D.O., [facility] 04/02/2021 E04.2 Nontoxic multinodular goiter Migue Irizarry D.O., [facility] 04/02/2021 Z68.39 Body mass index [BMI] 39.0-39.9, adult Alex Irizarry D.O., [facility] 04/02/2021 R73.01 Impaired fasting glucose [facility]., [facility] Plan of Treatment Future Appointment(s):* 11/05/2021 1:15 pm - Alex Irizarry D.O., [facility] at [facility] Functional Status Description No Information Available Mental Status Description No Information Available Referrals Description No Information Available
--- OUTSIDE RECORDS SUMMARY | 2021-07-27 06:51 | CCD | Continuity of Care Document ---
Author Author Yanni IRIZARRY D.O. Organization Unknown Address [address] [place] [id number] Phone [phone] Problems Active Problems Provider Date Non-toxic multinodular [...] in 2-6 months 1units Alex Irizarry D.O., [facility] 09/28/2018 Lisinopril 2.5mg Tablets Take 1 Tablet By Mouth Daily 90tabs Alex Irizarry D.O., [facility] Hydrochlorothiazide 12.5mg Capsule s Take 1 Capsule By Mouth Every Day. Maximum Daily Dose Is 1 90caps [facility] 08/04/2017 Oscal Vit D 600 Tablets take two tablets once daily Alex [facility].O., [facility] One Daily Womens 50+ 50+ Tablets 1 by mouth every day Unknown Advil 200mg Tablets 1 twice a day as needed Unknown Medications Administered in Office Medication SIG Qnty Indications Ordering Provider Date Injection (SC)/(Im) Injection Soha Bowden D., [facility]ELY[facility]-Add[facility] 07/15/2015 Injection (SC)/(Im) Injection Alex Irizarry D.O., [facility] 07/05/2013 Injection (SC)/(Im) Injection Alex Irizarry D.O., [facility] 07/20/2012 Injection (SC)/(Im) Injection Alex rIizarry D.O., [facility] 09/09/2011 Injection (SC)/(Im) Injection Jeri Jesus D.O. 07/13/2010 Injection Subcutaneous Or Intramuscular Injection Alex Irizarry D.O., [facility] 09/19/2008 Immunizations CPT Code Status Date Vaccine Lot # [id number] Given 07/16/2021 Influenza Virus Vaccine, Quadrivalent, Slit Virus, Im Use 3Y & Up [id number] 70149 Given 07/31/2020 Influenza Virus Vaccine, Quadrivalent, Slit Virus, Im Use 3Y & Up [id number] 45260 Given 09/20/2019 Influenza Virus Vaccine, Quadrivalent, Slit Virus, Im Use 3Y & Up [id number] 83709 Given 06/22/2018 Influenza Virus Vaccine, Quadrivalent, Slit Virus, Im Use 3Y & Up [id number] 55195 Given 08/04/2017 Influenza Virus Vaccine, Quadrivalent, Slit Virus, Im Use 3Y & Up [id number] 58718 Given 07/20/2016 Influenza Virus Vaccine, Quadrivalent, Slit Virus, Im Use 3Y & Up [id number] 49890 Given 07/15/2015 Influenza Virus Vac. Split Virus Individuals 3 Years And Above [id number] 68788 Given 07/05/2013 Influenza Virus Vac. Split Virus Individuals 3 Years And Above [id number] 90550 Given 07/20/2012 Influenza Virus Vac. Split Virus Individuals 3 Years And Above [id number] 24601 Given 09/09/2011 Influenza Virus Vac. Split Virus Individuals 3 Years And Above [id number] 71077 Given 07/13/2010 Influenza Virus Vac. Split Virus Individuals 3 Years And Above [id number] 43225 Given 09/19/2008 Influenza Virus Vac. Split Virus Individuals 3 Years And Above [id number] Vital Signs Date Vital Result Comment 07/16/2021 2:01pm BP Systolic 108 mmHg BP Diastolic 78 mmHg Body Temperature 97.6 F Heart Rate 72 /min Respiratory Rate 16 /min Height 66 inches 5'6" Weight 238.00 lb [place] Body Weight 130 lb BMI (Body Mass Index) 38.4 kg/m2 O2 % BldC Oximetry 96 % 04/27/2021 1:27pm BP Systolic 140 mmHg BP Diastolic 80 mmHg Body Temperature 97.3 F Heart Rate 76 /min Respiratory Rate 17 /min Height 66 inches 5'6" Weight 242.00 lb [place] Body Weight 130 lb BMI (Body Mass Index) 39.1 kg/m2 O2 % BldC Oximetry 98 % (AT Rest), (Room Air ) Results Test Acquired Date Facility Test Result H/L Range Note Laboratory test finding 07/16/2021 [facility] Hemoglobin A1c <pending> % 4.50-6.20 U/A DIP [facility] Color Urine <pending> Yellow Appearance <pending> Clear Specific [place] <pending> 1.00-1.03 PH Urine <pending> 5.0-8.0 Glucose Urine <pending> Negative Bilirubin Urine <pending> Negative Ketones <pending> Negative Blood Urine <pending> Negative Protein Urine <pending> Negative Urobilinogen <pending> EU/dl 0.2-1.0 Nitrite <pending> Negative Leukocytes <pending> Negative Comment 1 <pending> Laboratory test finding 07/16/2021 [facility] <pending> U/A DIP FPA 04/02/2021 [facility] Color Urine YELLOW Yellow Appearance CLEAR Clear Specific [place] 1.025 1.00-1.03 PH Urine 5.0 5.0-8.0 Glucose Urine NEG Negative Bilirubin Urine NEG Negative Ketones NEG Negative Blood Urine NEG Negative Protein Urine NEG Negative Urobilinogen 0.2 EU/dl 0.2-1.0 Nitrite NEG Negative Leukocytes NEG Negative Laboratory test finding 04/02/2021 [facility] Hemoglobin A1c 5.9 % 4.50-6.20 [...] eGFR 78 # Calc 2 eGFR Non-Afr. Lithuanian 67 # Calc 3 Microalb/Creat Ratio 04/02/2021 [facility] Alb 10 mg/L 1 - 30 Creatinine, Urine 300 mg/dL 10 - 300 A/C Ratio <30 mg/g % U/A DIP FPA 04/02/2021 [facility] [place] moreno Color Urine <pending> Yellow Appearance <pending> Clear Specific [place] <pending> 1.00-1.03 PH Urine <pending> 5.0-8.0 Glucose Urine <pending> Negative Bilirubin Urine <pending> Negative Ketones <pending> Negative Blood Urine <pending> Negative Protein Urine <pending> Negative Urobilinogen <pending> EU/dl 0.2-1.0 Nitrite <pending> Negative Leukocytes <pending> Negative Comment 1 <pending> Laboratory test finding 04/02/2021 [facility] Hemoglobin A1c <pending> % [...] HCT IS 5% LESS SOURCE FOR DATA: [employer] 1800 OPERATION MANUAL( AUTOMATED BLOOD COUNTS AND DIFF.) APPENDIX B-3 2 CKD-EPI 3 CKD-EPI Procedures Date Code Description Status 07/16/2021 00405 Office/Outpatient Established Mo d MDM 30-39 Min Completed 04/27/2021 93500 Office/Outpatient Established Lo w MDM 20-29 Min Completed 04/02/2021 39855 Office/Outpatient Established Mo d MDM 30-39 Min Completed Medical Devices Description No Information Available Encounters Type Date Location Provider Dx Diagnosis Office Visit 07/16/2021 1:30p [place] [facility] Kelly Pastor, FAAFP I10 Essential (primary) hypertension R73.09 Other abnormal glucose Office Visit 04/27/2021 1:30p [place] [facility] Yanni Prado FNP- I10 Essential (primary) hypertension Z12.39 Encounter for ot screening for malignant neoplasm of breast E04.2 Nontoxic multinodular goiter Office Visit 04/02/2021 1:30p [place] [facility] Kelly Pastor, FAAFP I10 Essential (primary) hypertension E04.2 Nontoxic multinodular goiter Z68.39 Body mass index [BMI] 39.0-3 9.9, adult R73.01 Impaired fasting glucose Assessments Date Code Description Provider 07/16/2021 I10 Essential (primary) hypertension Alex Irizarry D.O., [facility] 07/16/2021 R73.09 Other abnormal glucose Alex Irizarry D.O., [facility] 04/27/2021 I10 Essential (primary) hypertension Rounds, Yanni Garcia, [facility] 04/27/2021 Z12.39 Encounter for other screening for malignant neoplasm of breast Johan, Yanni Garcia, [facility] 04/27/2021 E04.2 Nontoxic multinodular goiter Rou nds, Yanni Garcia, [facility] 04/02/2021 I10 Essential (primary) hypertension Alex Irizarry D.O., [facility] 04/02/2021 E04.2 Nontoxic multinodular goiter Migue Irizarry D.O., [facility] 04/02/2021 Z68.39 Body mass index [BMI] 39.0-39.9, adult Alex Irizarry D.O., [facility] 04/02/2021 R73.01 Impaired fasting glucose Alex Irizarry D.O., FAAFP Plan of Treatment Future Appointment(s):* 11/05/2021 1:15 pm - Alex Irizarry D.O., [facility] at [facility] Functional Status Description No Information Available Mental Status Description No Information Available Referrals Description No Information Available
[2021-07-27] MEDS ORDERED: propofoL 200 MG/20 ML VIAL As Ordered ONE (06:52)
[2021-07-27] MEDS ORDERED: LIDOCAINE 2% 100MG/5ML SDV (FOR ANES.) As Ordered ONE (06:52)
--- OUTSIDE RECORDS SUMMARY | 2021-07-27 06:52 | CCD ---
Author Author [facility] Organization [facility] Address Unknown Phone Unavailable Care Team Providers Care Tugboat Captain Name Role Phone Rounds, M LUCIA TEST AND BALANCE ENGINEER Unavailable Unavailable Rounds, M LUCIA TEST AND BALANCE ENGINEER Unavailable Unavailable Rounds, M LUCIA TEST AND BALANCE ENGINEER Unavailable Unavailable Rounds, M LUCIA TEST AND BALANCE ENGINEER Unavailable Unavailable Rounds, M LUCIA TEST AND BALANCE ENGINEER Unavailable Unavailable Rounds, M LUCIA TEST AND BALANCE ENGINEER Unavailable Unavailable Rounds, M LUCIA TEST AND BALANCE ENGINEER Unavailable Unavailable Rounds, M LUCIA TEST AND BALANCE ENGINEER Unavailable Unavailable Rounds, M LUCIA TEST AND BALANCE ENGINEER Unavailable Unavailable Rounds, M LUCIA TEST AND BALANCE ENGINEER Unavailable Unavailable Rounds, M LUCIA TEST AND BALANCE ENGINEER Unavailable Unavailable Rounds, M LUCIA TEST AND BALANCE ENGINEER Unavailable Unavailable Rounds, M LUCIA TEST AND BALANCE ENGINEER Unavailable Unavailable Rounds, M LUCIA TEST AND BALANCE ENGINEER Unavailable Unavailable Rounds, M LUCIA TEST AND BALANCE ENGINEER Unavailable Unavailable Rounds, M LUCIA TEST AND BALANCE ENGINEER Unavailable Unavailable Rounds, M LUCIA TEST AND BALANCE ENGINEER Unavailable Unavailable Rounds, M LUCIA TEST AND BALANCE ENGINEER Unavailable Unavailable Rounds, M LUCIA TEST AND BALANCE ENGINEER Unavailable Unavailable Rounds, M LUCIA TEST AND BALANCE ENGINEER Unavailable Unavailable Rounds, M LUCIA TEST AND BALANCE ENGINEER Unavailable Unavailable Rounds, M LUCIA TEST AND BALANCE ENGINEER Unavailable Unavailable Rounds, M LUCIA TEST AND BALANCE ENGINEER Unavailable Unavailable Rounds, M LUCIA TEST AND BALANCE ENGINEER Unavailable Unavailable Rounds, M LUCIA TEST AND BALANCE ENGINEER Unavailable Unavailable Rounds, M LUCIA TEST AND BALANCE ENGINEER Unavailable Unavailable Rounds, M LUCIA TEST AND BALANCE ENGINEER Unavailable Unavailable Rounds, M LUCIA TEST AND BALANCE ENGINEER Unavailable Unavailable Rounds, M LUCIA TEST AND BALANCE ENGINEER Unavailable Unavailable Rounds, M LUCIA TEST AND BALANCE ENGINEER Unavailable Unavailable Rounds, M LUCIA TEST AND BALANCE ENGINEER Unavailable Unavailable Rounds, M LUCIA TEST AND BALANCE ENGINEER Unavailable Unavailable Rounds, M LUCIA TEST AND BALANCE ENGINEER Unavailable Unavailable Rounds, M LUCIA TEST AND BALANCE ENGINEER Unavailable Unavailable Rounds, M LUCIA TEST AND BALANCE ENGINEER Unavailable Unavailable Rounds, M LUCIA TEST AND BALANCE ENGINEER Unavailable Unavailable Rounds, M LUCIA TEST AND BALANCE ENGINEER Unavailable Unavailable Rounds, M LUCIA TEST AND BALANCE ENGINEER Unavailable Unavailable Rounds, M LUCIA TEST AND BALANCE ENGINEER Unavailable Unavailable Rounds, M LUCIA TEST AND BALANCE ENGINEER Unavailable Unavailable Rounds, M LUCIA TEST AND BALANCE ENGINEER Unavailable Unavailable Rounds, M LUCIA TEST AND BALANCE ENGINEER Unavailable Unavailable Rounds, M LUCIA TEST AND BALANCE ENGINEER Unavailable Unavailable Rounds, M LUCIA TEST AND BALANCE ENGINEER Unavailable Unavailable Rounds, M LUCIA TEST AND BALANCE ENGINEER Unavailable Unavailable Rounds, M LUCIA TEST AND BALANCE ENGINEER Unavailable Unavailable Rounds, M LUCIA TEST AND BALANCE ENGINEER Unavailable Unavailable Rounds, M LUCIA TEST AND BALANCE ENGINEER Unavailable Unavailable Rounds, M LUCIA TEST AND BALANCE ENGINEER Unavailable Unavailable Rounds, M LUCIA TEST AND BALANCE ENGINEER Unavailable Unavailable Rounds, M LUCIA TEST AND BALANCE ENGINEER Unavailable Unavailable Rounds, M LUCIA TEST AND BALANCE ENGINEER Unavailable Unavailable Rounds, M LUCIA TEST AND BALANCE ENGINEER Unavailable Unavailable Rounds, M LUCIA TEST AND BALANCE ENGINEER Unavailable Unavailable Rounds, M LUCIA TEST AND BALANCE ENGINEER Unavailable Unavailable Rounds, M LUCIA TEST AND BALANCE ENGINEER Unavailable Unavailable Rounds, M LUCIA TEST AND BALANCE ENGINEER Unavailable Unavailable Rounds, M LUCIA TEST AND BALANCE ENGINEER Unavailable Unavailable Rounds, M LUCIA TEST AND BALANCE ENGINEER Unavailable Unavailable Rounds, M LUCIA TEST AND BALANCE ENGINEER Unavailable Unavailable Rounds, M LUCIA TEST AND BALANCE ENGINEER Unavailable Unavailable Rounds, M LUCIA TEST AND BALANCE ENGINEER Unavailable Unavailable Rounds, M LUCIA TEST AND BALANCE ENGINEER Unavailable Unavailable Ky Oconnell MD Unavailable Unavailable Rencharbel, Ky FREED Unavailable Unavailable Renzi, Ky FREED Unavailable Unavailable Renzi, Ky FREED Unavailable Unavailable Renzi, Ky FREED Unavailable Unavailable Renzi, Ky FREED Unavailable Unavailable Renzi, Ky FREED Unavailable Unavailable Renzi, Ky FREED Unavailable Unavailable Renzi, Ky FREED Unavailable Unavailable Renzi, Ky FREED Unavailable Unavailable Renzi, Ky FREED Unavailable Unavailable Renzi, Ky FREED Unavailable Unavailable Fish, J Alex Unavailable Unavailable Fish, J Alex Unavailable Unavailable Fish, J Alex Unavailable Unavailable Fish, J Aelx Unavailable Unavailable Fish, J Alex Unavailable Unavailable Fish, J Alex Unavailable Unavailable Fish, J Alex Unavailable Unavailable Fish, J Alex Unavailable Unavailable Fish, J Alex Unavailable Unavailable Fish, J Alex Unavailable Unavailable Fish, J Alex Unavailable Unavailable Fish, J Alex Unavailable Unavailable Fish, J Alex Unavailable Unavailable Fish, J Alex Unavailable Unavailable Fish, J Alex Unavailable Unavailable Fish, J Alex Unavailable Unavailable Fish, J Alex Unavailable Unavailable Fish, J Alex Unavailable Unavailable Fish, J Alex Unavailable Unavailable Fish, J Alex Unavailable Unavailable Fish, J Alex Unavailable Unavailable Fish, J Alex Unavailable Unavailable Fish, J Alex Unavailable Unavailable Fish, J Alex Unavailable Unavailable Fish, J Alex Unavailable Unavailable Fish, J Alex Unavailable Unavailable Fish, J Alex Unavailable Unavailable Fish, J Alex Unavailable Unavailable Fish, J Alex Unavailable Unavailable Fish, J Alex Unavailable Unavailable Fish, J Alex Unavailable Unavailable Fish, J Alex Unavailable Unavailable Fish, J Alex Unavailable Unavailable Fish, J Alex Unavailable Unavailable Fish, J Alex Unavailable Unavailable Fish, J Alex Unavailable Unavailable Fish, J Alex Unavailable Unavailable Fish, J Alex Unavailable Unavailable Fish, J Alex Unavailable Unavailable Fish, J Alex Unavailable Unavailable Fish, J Alex Unavailable Unavailable Fish, J Alex Unavailable Unavailable Fish, J Alex Unavailable Unavailable Fish, J Alex Unavailable Unavailable Fish, J Alex Unavailable Unavailable Fish, J Alex Unavailable Unavailable Fish, J Alex Unavailable Unavailable Fish, J Alex Unavailable Unavailable Fish, J Alex Unavailable Unavailable Fish, J Alex Unavailable Unavailable Fish, J Alex Unavailable Unavailable Fish, J Alex Unavailable Unavailable Fish, J Alex Unavailable Unavailable Fish, J Alex Unavailable Unavailable Fish, J Alex Unavailable Unavailable Fish, J Alex Unavailable Unavailable Fish, J Alex Unavailable Unavailable Fish, J Alex Unavailable Unavailable Fish, J Alex Unavailable Unavailable Fish, J Alex Unavailable Unavailable Fish, J Alex Unavailable Unavailable Fish, J Alex Unavailable Unavailable Fish, J Alex Unavailable Unavailable Fish, J Alex Unavailable Unavailable Fish, J Alex Unavailable Unavailable Fish, J Alex Unavailable Unavailable Fish, J Alex Unavailable Unavailable Fish, J Alxe Unavailable Unavailable Fish, J Alex Unavailable Unavailable Fish, J Alex Unavailable Unavailable Fish, J Alex Unavailable Unavailable Fish, J Alex Unavailable Unavailable Fish, J Alex Unavailable Unavailable Fish, J Alex Unavailable Unavailable Fish, J Alex Unavailable Unavailable Fish, J Alex Unavailable Unavailable Fish, J Alex Unavailable Unavailable Fish, J Alex Unavailable Unavailable Fish, J Alex Unavailable Unavailable Fish, J Alex Unavailable Unavailable Fish, J Alex Unavailable Unavailable Fish, J Alex Unavailable Unavailable Fish, J Alex Unavailable Unavailable Fish, J Alex Unavailable Unavailable Gael KRAUSE DPM PC Unavailable Unavailable Gael KRAUSE DPM PC Unavailable Unavailable Gael KRAUSE DPM PC Unavailable Unavailable Gael KRAUSE DPM PC Unavailable Unavailable JIMI, J WILMER DPM PC Unavailable Unavailable JIMI J WILMER DPM PC Unavailable Unavailable JIMI J WILMER DPM PC Unavailable Unavailable JIMI J WILMER DPM PC Unavailable Unavailable JIMI J WILMER DPM PC Unavailable Unavailable JIMI J WILMER DPM PC Unavailable Unavailable JIMI J WILMER DPM PC Unavailable Unavailable JIMI J WILMER DPM PC Unavailable Unavailable JIMI J WILMER DPM PC Unavailable Unavailable JIMI J WILMER DPM PC Unavailable Unavailable JIMI J WILMER DPM PC Unavailable Unavailable JIMI J WILMER DPM PC Unavailable Unavailable JIMI J WILMER DPM PC Unavailable Unavailable JIMI J WILMER DPM PC Unavailable Unavailable JIMI J WILMER DPM PC Unavailable Unavailable JIMI J WILMER DPM PC Unavailable Unavailable JIMI J WILMER DPM PC Unavailable Unavailable JIMI J WILMER DPM PC Unavailable Unavailable JIMI J WILMER DPM PC Unavailable Unavailable JIMI J WILMER DPM PC Unavailable Unavailable JIMI J WILMER DPM PC Unavailable Unavailable JIMI J WILMER DPM PC Unavailable Unavailable JIMI J WILMER DPM PC Unavailable Unavailable Re-disclosure Warning The records that you are about to access may contain information from federally-assisted alcohol or drug abuse programs. If such information is present, then the following federally mandated warning applies: This information has been disclosed to you from records protected by federal confidentiality rules (42 CFR part 2). The federal rules prohibit you from making any further disclosure of this information unless further disclosure is expressly permitted by the written consent of the person to whom it pertains or as otherwise permitted by 42 CFR part 2. A general authorization for the release of medical or other information is NOT sufficient for this purpose. The Federal rules restrict any use of the information to criminally investigate or prosecute any alcohol or drug abuse patient.The records that you are about to access may contain highly sensitive health information, the redisclosure of which is protected by Article 27-F of the [facility] Public Health law. If you continue you may have access to information: Regarding HIV / AIDS; Provided by facilities licensed or operated by the [facility] Office of Mental Health; or Provided by the [facility] Office for People With Developmental Disabilities. If such information is present, then the following [facility] mandated warning applies: This information has been disclosed to you from confidential records which are protected by state law. State law prohibits you from making any further disclosure of this information without the specific written consent of the person to whom it pertains, or as otherwise permitted by law. Any unauthorized further disclosure in violation of state law may result in a fine or penitentiary sentence or both. A general authorization for the release of medical or other information is NOT sufficient authorization for further disc losure. Family History Family Member Name Family Member Gender Family Member Status Date o f Status Description Data Source(s) Unknown Unknown Problem [facility] ([facility] mother Unknown Unknown Problem [facility] mother dx age 82 /brother dx age 60 Unknown Male Problem [facility] ([facility] () - Age 71 Unknown Female Problem MED[facility] ([facility]) Encounters Encounter Providers Location Date Indications Data Source(s ) Outpatient Attender: [facility] Office 07/16/2021 01:30:0 0 PM EDT [facility] ([facility] Outpatient Attender: LUCIA Prado [facility] Office 04/27/2021 0 1:30:00 PM EDT [facility] ([facility] ) Outpatient Attender: [facility] Office 04/02/2021 01:30:0 0 PM EDT [facility] ([facility] Outpatient Attender: WILMER KRAUSE DPM PCConsultant: Jose M Oconnell MD 03/05/2021 10:59:00 AM EDT - 03/05/2021 10:59:00 AM [facility] Outpatient Attender: WILMER KRAUSE DPM PCConsultant: Jose M Oconnell MD 12/11/2020 10:08:00 AM EST - 12/11/2020 10:08:00 AM [facility] Outpatient Attender: [facility] Office 11/06/2020 12:30:0 0 PM EST MED[facility] ([facility] Outpatient Attender: [facility] Office 07/31/2020 01:00:0 0 PM EDT MED[facility] ([facility] Immunizations Vaccine Date Status Description Data Source(s) New in 2012. IIV4 07/16/2021 02:03:00 PM EDT completed MED[facility] ([facility] COVID-19 VACCINE Moderna 01/19/2021 12:00:00 AM EDT completed NYSIIS Vaccine Series Complete: YESThis Data wa s Submitted to [facility]. COVID-19 VACCINE Moderna 12/18/2020 12:00:00 AM EST completed NYSIIS Vaccine Series Complete: NOThis Data was Submitted to [facility]. New in 2012. IIV4 07/31/2020 01:17:00 PM EDT completed [facility] ([facility] Medications Medication Brand Name Start Date Product Form Dose Route Admi nistrative Instructions Pharmacy Instructions Status Indications Reaction Description Data Source(s) Bisacodyl 5 MG Delayed Release Oral Tablet [Dulcolax] Dulcol ax 04/09/2021 12:00:00 AM EDT ORAL active M EDENT ([facility] ) Sutab Sutab 04/09/2021 12:00:00 AM EDT active [facility] ([facility] ) Moderna Covid-19 Vaccine Moderna Covid-19 Vaccine 04/02/2021 12:00: 00 AM EDT active [facility] ([facility] Insurance Providers Payer name Policy type / Coverage type Policy ID Covered republican ID Covered republican's relationship to troy Policy [place] Plan Information BLUE CARD 1 [id number] EMPIRE PLAN [facility] U [id number] Self [id number] EMPIRE PLAN [facility] U [id number] Self [id number] [place] Plan F [id number] SPOUSE [id number] UNITED HEALTHCARE [id number] [facility] EMPIRE AMELIA DIV [id number] [id number] [facility] EMPIRE PLAN HM UNAVAILABLE 01 UN AVAILABLE [facility] [place] Commercial [id number] Family Dependent [id number] [facility] [place] Commercial [id number] Family Dependent [id number] [facility] [id number] MEDICARE [id number] SP [id number] EMPIRE ([facility]) O [id number] S [id number] EXCELLUS BCBS [id number] Spo [id number] [facility] [place] Commercial [id number] Family Depende nt [facility] O [id number] S [id number] [place] [facility] Health Maintenance Organization (HMO) [id number] Family Dependent EMPIRE ([facility]) O [id number] S [id number] TRAVELERS NO FAULT [id number] SP [id number] SELF PAY 2 UNAVAILABLE 1 UNAVAILA BLE [facility] Health Maintenance Organization (O) [id number] Family Dependent [id number] BCBS EMPIRE AMELIA DIV [id number] BCBS EMPIRE AMELIA DIV [id number] [facility] EMPIRE PLAN [id number] [place] [facility] Commercial [id number] Family Dependent [id number] [facility] Commercial [id number] Dependent [id number] Problems, Conditions, and Diagnoses No Information Surgeries/Procedures Procedure Description Date Indications Data Source(s) OFFICE OUTPATIENT VISIT 25 MINUTES 07/16/2021 12:00:00 AM EDT MED[facility] ([facility] OFFICE OUTPATIENT VISIT 15 MINUTES 04/27/2021 12:00:00 AM EDT MED[facility] ([facility] OFFICE OUTPATIENT VISIT 25 MINUTES 04/02/2021 12:00:00 AM EDT [facility] ([facility] Pare Hyperkeratotic Lesion, 2-4 12/11/2020 12:00:00 AM EST MED[facility] ([facility]) OFFICE OUTPATIENT VISIT 25 MINUTES 11/06/2020 12:00:00 AM EST [facility] ([facility] Results ID Date Data Source [id number] 07/16/2021 03:23:00 PM EDT [facility] ([facility] Name Value Range Interpretation Code Description Data Leeanna rce(s) Supporting Document(s) Hemoglobin A1c/Hemoglobin.total in Blood 5.7 % 4.50-6.20 [facility] ([facility] ID Date Data Source [id number] 07/16/2021 02:45:00 PM EDT [facility] ([facility] Name Value Range Interpretation Code Description Data Leeanna rce(s) Supporting Document(s) Color Urine Laboratory test result M EDENT ([facility] PH Urine Laboratory test result 5.0-8.0 ME DENT ([facility] Appearance of Urine Laboratory test result [facility] ([facility] Specific [facility] Laboratory test result 1.00-1.03 [facility] ([facility] Ketones Laboratory test result [facility] ([facility] Glucose Urine Laboratory test result [facility] ([facility] Bilirubin.total [Presence] in Urine by Test strip Laboratory test res ult [facility] ([facility] Blood Urine Laboratory test result M EDENT ([facility] Protein Urine Laboratory test result [facility] ([facility] Leukocytes Laboratory test result ME DENT ([facility] Nitrite Laboratory test result [facility] ([facility] Urobilinogen Laboratory test result 0.2-1.0 [facility] ([facility] Comment 1 Laboratory test result ME DENT ([facility] ID Date Data Source [id number] 07/16/2021 02:44:00 PM EDT [facility] ([facility] Name Value Range Interpretation Code Description Data Leeanna rce(s) Supporting Document(s) Creatine kinase [Enzymatic activity/volume] in Serum or Plasma 95 U /L 26-192 [facility] ([facility] NORMAL RANGES Age WBC RBC HGB HCT [...] HCT IS 5% LESS SOURCE FOR DATA: [employer] 1800 OPERATION MANUAL( AUTOMATED BLOOD COUNTS AND [...] Normal 80 and above >32 mL/min Normal ID Date Data Source [id number] 07/16/2021 02:44:00 PM EDT [facility] ([facility] Name Value Range Interpretation Code Description Data Leeanna rce(s) Supporting Document(s) Glu 99 mg/dL 70-110 [facility] ([facility] NORMAL RANGES Age WBC RBC HGB HCT [...] Normal 80 and above >32 mL/min Normal BUN 20 mg/dL 8 [facility] ([facility] NORMAL RANGES Age WBC RBC HGB HCT [...] HCT IS 5% LESS SOURCE FOR DATA: [employer] DYN 1800 OPERATION MANUAL( AUTOMATED BLOOD COUNTS [...] Normal 80 and above >32 mL/min Normal Na 142 mmol/L 136-145 [facility] ([facility] NORMAL RANGES Age WBC RBC HGB HCT [...] HCT IS 5% LESS SOURCE FOR DATA: [employer] 1800 OPERATION MANUAL( AUTOMATED BLOOD COUNTS AND [...] Normal 80 and above >32 mL/min Normal Creat 0.8 mg/dL 0.5-1.0 [facility] ([facility] NORMAL RANGES Age WBC RBC HGB HCT [...] HCT IS 5% LESS SOURCE FOR DATA: [employer] 1800 OPERATION MANUAL( AUTOMATED BLOOD COUNTS AND [...] Normal 80 and above >32 mL/min Normal BUN/Creatinine Ratio 24.1 Calc [facility] ([facility] NORMAL RANGES Age WBC RBC HGB HCT [...] HCT IS 5% LESS SOURCE FOR DATA: [employer] 1800 OPERATION MANUAL( AUTOMATED BLOOD COUNTS AND [...] Normal 80 and above >32 mL/min Normal CL 100.0 mmol/L 98.0-107.0 [facility] NORMAL RANGES Age WBC RBC HGB HCT [...] HCT IS 5% LESS SOURCE FOR DATA: [employer] 1800 OPERATION MANUAL( AUTOMATED BLOOD COUNTS AND [...] Normal 80 and above >32 mL/min Normal K 4.1 mmol/L 3.5-5.1 [facility] ([facility] NORMAL RANGES Age WBC RBC HGB HCT [...] HCT IS 5% LESS SOURCE FOR DATA: [employer] 1800 OPERATION MANUAL( AUTOMATED BLOOD COUNTS AND [...] Normal 80 and above >32 mL/min Normal Co2 24.5 mmol/L 22.0-29.0 [employer] ([facility] NORMAL RANGES Age WBC RBC HGB HCT [...] HCT IS 5% LESS SOURCE FOR DATA: [employer] 1800 OPERATION MANUAL( AUTOMATED BLOOD COUNTS AND [...] Normal 80 and above >32 mL/min Normal CA 9.7 mg/dL 8.6-10.2 [facility] ([facility] NORMAL RANGES Age WBC RBC HGB HCT [...] HCT IS 5% LESS SOURCE FOR DATA: [employer] 1800 OPERATION MANUAL( AUTOMATED BLOOD COUNTS AND [...] Normal 80 and above >32 mL/min Normal Alb 4.8 g/dL 3.4-4.8 [facility] ([facility] NORMAL RANGES Age WBC RBC HGB HCT [...] HCT IS 5% LESS SOURCE FOR DATA: [employer] 1800 OPERATION MANUAL( AUTOMATED BLOOD COUNTS AND [...] Normal 80 and above >32 mL/min Normal A/G Ratio 2.2 Calc [employer] ([facility] NORMAL RANGES Age WBC RBC HGB HCT [...] Normal 80 and above >32 mL/min Normal TP 7.0 g/dL 6.6-8.7 [facility] ([facility] NORMAL RANGES Age WBC RBC HGB HCT [...] HCT IS 5% LESS SOURCE FOR DATA: [employer] DYN 1800 OPERATION MANUAL( AUTOMATED BLOOD COUNTS [...] Normal 80 and above >32 mL/min Normal Alp 94.7 U/L 35-129 [facility] ([facility] NORMAL RANGES Age WBC RBC HGB HCT [...] HCT IS 5% LESS SOURCE FOR DATA: [employer] 1800 OPERATION MANUAL( AUTOMATED BLOOD COUNTS AND [...] Normal 80 and above >32 mL/min Normal Globulin 2.2 Calc [facility] ([facility] NORMAL RANGES Age WBC RBC HGB HCT [...] HCT IS 5% LESS SOURCE FOR DATA: [employer] 1800 OPERATION MANUAL( AUTOMATED BLOOD COUNTS AND [...] Normal 80 and above >32 mL/min Normal Alt (SGPT) 37 U/L 0-41 [facility] ([facility] NORMAL RANGES Age WBC RBC HGB HCT [...] HCT IS 5% LESS SOURCE FOR DATA: [employer] 1800 OPERATION MANUAL( AUTOMATED BLOOD COUNTS AND [...] Normal 80 and above >32 mL/min Normal Ast (Sgot) 27 U/L 0-40 [facility] ([facility] NORMAL RANGES Age WBC RBC HGB HCT [...] HCT IS 5% LESS SOURCE FOR DATA: [employer] 1800 OPERATION MANUAL( AUTOMATED BLOOD COUNTS AND [...] Normal 80 and above >32 mL/min Normal Anion Gap 21.6 mmol/L [facility] ([facility] NORMAL RANGES Age WBC RBC HGB HCT [...] HCT IS 5% LESS SOURCE FOR DATA: [employer] 1800 OPERATION MANUAL( AUTOMATED BLOOD COUNTS AND [...] Normal 80 and above >32 mL/min Normal Tbili 0.73 mg/dL 0.0-1.2 [facility] ([facility] NORMAL RANGES Age WBC RBC HGB HCT [...] HCT IS 5% LESS SOURCE FOR DATA: [employer] 1800 OPERATION MANUAL( AUTOMATED BLOOD COUNTS AND [...] Normal 80 and above >32 mL/min Normal Osmolality-Calculated 285.7 Calc [facility] ([facility] NORMAL RANGES Age WBC RBC HGB HCT [...] HCT IS 5% LESS SOURCE FOR DATA: [employer] 1800 OPERATION MANUAL( AUTOMATED BLOOD COUNTS AND [...] Normal 80 and above >32 mL/min Normal eGFR 90 # [facility] ( [facility] NORMAL RANGES Age WBC RBC HGB HCT [...] HCT IS 5% LESS SOURCE FOR DATA: [employer] 1800 OPERATION MANUAL( AUTOMATED BLOOD COUNTS AND [...] Normal 80 and above >32 mL/min Normal eGFR Non-Afr. [place] 77 # MEDENT ([facility] NORMAL RANGES Age WBC RBC HGB HCT [...] Normal 80 and above >32 mL/min Normal ID Date Data Source [id number] 07/16/2021 02:44:00 PM EDT [facility] ([facility] Name Value Range Interpretation Code Description Data Leeanna rce(s) Supporting Document(s) WBC 6.3 10E3/uL 4.1-10.9 [facility] ([facility] NORMAL RANGES Age WBC RBC HGB HCT [...] HCT IS 5% LESS SOURCE FOR DATA: [employer] 1800 OPERATION MANUAL( AUTOMATED BLOOD COUNTS AND [...] Normal 80 and above >32 mL/min Normal RBC 4.90 10E6/uL 4.20-6.30 [facility] NORMAL RANGES Age WBC RBC HGB HCT [...] HCT IS 5% LESS SOURCE FOR DATA: [employer] 1800 OPERATION MANUAL( AUTOMATED BLOOD COUNTS AND [...] Normal 80 and above >32 mL/min Normal HGB 15.0 g/dL 12.0-18.0 [facility] ([facility] NORMAL RANGES Age WBC RBC HGB HCT [...] HCT IS 5% LESS SOURCE FOR DATA: [employer] 1800 OPERATION MANUAL( AUTOMATED BLOOD COUNTS AND [...] Normal 80 and above >32 mL/min Normal HCT 44.9 % 37.0-51.0 [facility] ([facility] NORMAL RANGES Age WBC RBC HGB HCT [...] HCT IS 5% LESS SOURCE FOR DATA: [employer] 1800 OPERATION MANUAL( AUTOMATED BLOOD COUNTS AND [...] Normal 80 and above >32 mL/min Normal MCV 91.6 fL 80.0-97.0 [facility] ([facility] NORMAL RANGES Age WBC RBC HGB HCT [...] HCT IS 5% LESS SOURCE FOR DATA: [employer] 1800 OPERATION MANUAL( AUTOMATED BLOOD COUNTS AND [...] Normal 80 and above >32 mL/min Normal MCHC 33.4 g/dL 31.0-36.0 [facility] ([facility] NORMAL RANGES Age WBC RBC HGB HCT [...] HCT IS 5% LESS SOURCE FOR DATA: [employer] 1800 OPERATION MANUAL( AUTOMATED BLOOD COUNTS AND [...] Normal 80 and above >32 mL/min Normal MCH 30.6 pg 26.0-32.0 [facility] ([facility] NORMAL RANGES Age WBC RBC HGB HCT [...] HCT IS 5% LESS SOURCE FOR DATA: [employer] 1800 OPERATION MANUAL( AUTOMATED BLOOD COUNTS AND [...] Normal 80 and above >32 mL/min Normal PLT 249 10E3/uL 140-440 [facility] ([facility] NORMAL RANGES Age WBC RBC HGB HCT [...] HCT IS 5% LESS SOURCE FOR DATA: [employer] 1800 OPERATION MANUAL( AUTOMATED BLOOD COUNTS AND [...] Normal 80 and above >32 mL/min Normal RDW-CV 13.4 % 11.5-14.5 [facility] ([facility] NORMAL RANGES Age WBC RBC HGB HCT MCV PLT Adult M 4.1-10.9 4.20-6.30 12.0-18.0 37.0-51.0 80-97 140-440 Adult F 4.1-10.9 4.04-5.48 12.0-18.0 37.0-51.0 80- 140-440 0 -1 Yr 5.0-20.0 3.9-5.9 15-18 [...] HCT IS 5% LESS SOURCE FOR DATA: [employer] 1800 OPERATION MANUAL( AUTOMATED BLOOD COUNTS AND [...] Normal 80 and above >32 mL/min Normal Lym% 24.3 % 10.0-58.5 [facility] ([facility] NORMAL RANGES Age WBC RBC HGB HCT [...] HCT IS 5% LESS SOURCE FOR DATA: [employer] 1800 OPERATION MANUAL( AUTOMATED BLOOD COUNTS AND [...] Normal 80 and above >32 mL/min Normal MXD% 9.6 % 0.1-24.0 [facility] ([facility] NORMAL RANGES Age WBC RBC HGB HCT [...] HCT IS 5% LESS SOURCE FOR DATA: [employer] 1800 OPERATION MANUAL( AUTOMATED BLOOD COUNTS AND [...] Normal 80 and above >32 mL/min Normal Neut% 66.1 % 37.0-92.0 [facility] ([facility] NORMAL RANGES Age WBC RBC HGB HCT [...] HCT IS 5% LESS SOURCE FOR DATA: [employer] 1800 OPERATION MANUAL( AUTOMATED BLOOD COUNTS AND [...] Normal 80 and above >32 mL/min Normal Lym# 1.5 10E3/uL 0.6-4.1 [facility] ([facility] NORMAL RANGES Age WBC RBC HGB HCT [...] HCT IS 5% LESS SOURCE FOR DATA: [employer] 1800 OPERATION MANUAL( AUTOMATED BLOOD COUNTS AND [...] Normal 80 and above >32 mL/min Normal MXD# 0.6 10E3/uL 0.0-1.8 [facility] ([facility] NORMAL RANGES Age WBC RBC HGB HCT [...] HCT IS 5% LESS SOURCE FOR DATA: [employer] 1800 OPERATION MANUAL( AUTOMATED BLOOD COUNTS AND [...] Normal 80 and above >32 mL/min Normal Neut# 4.2 % 2.0-7.8 [facility] ([facility] NORMAL RANGES Age WBC RBC HGB HCT [...] HCT IS 5% LESS SOURCE FOR DATA: [employer] 1800 OPERATION MANUAL( AUTOMATED BLOOD COUNTS AND [...] Normal 80 and above >32 mL/min Normal MPV 11.3 fL 9.0-13.0 [facility] ([facility] NORMAL RANGES Age WBC RBC HGB HCT [...] HCT IS 5% LESS SOURCE FOR DATA: [employer] 1800 OPERATION MANUAL( AUTOMATED BLOOD COUNTS AND [...] Normal 80 and above >32 mL/min Normal ID Date Data Source [id number] 04/02/2021 03:23:00 PM EDT [facility] ([facility] Name Value Range Interpretation Code Description Data Leeanna rce(s) Supporting Document(s) Hemoglobin A1c/Hemoglobin.total in Blood 5.9 % 4.50-6.20 [facility] ([facility] ID Date Data Source [id number] 04/02/2021 03:23:00 PM EDT [facility] ([facility] Name Value Range Interpretation Code Description Data Leeanna rce(s) Supporting Document(s) Color Urine Laboratory test result M [facility] ([facility] PH Urine 5.0 5.0-8.0 [facility] Specific [place] 1.025 1.00-1.03 [facility] ([facility] Appearance of Urine Laboratory test result [facility] ([facility] Glucose Urine Laboratory test result [facility] ([facility] Ketones Laboratory test result [facility] ([facility] Bilirubin.total [Presence] in Urine by Test strip Laboratory test res ult [facility] ([facility] Urobilinogen 0.2 EU/dl 0.2-1.0 [facility] ([facility] Protein Urine Laboratory test result [facility] ([facility] Blood Urine Laboratory test result M [facility] ([facility] Leukocytes Laboratory test result ME [facility] ([facility] Nitrite Laboratory test result [facility] ([facility] ID Date Data Source [id number] 04/02/2021 03:22:00 PM EDT [facility] ([facility] Name Value Range Interpretation Code Description Data Leeanna rce(s) Supporting Document(s) BUN 23 mg/dL 8-23 [facility] ([facility] NORMAL RANGES Age WBC RBC HGB HCT [...] HCT IS 5% LESS SOURCE FOR DATA: [employer] 1800 OPERATION MANUAL( AUTOMATED BLOOD COUNTS AND DIFF.) APPENDIX B-3 Creat 0.9 mg/dL 0.5-1.0 [facility] ([facility] NORMAL RANGES Age WBC RBC HGB HCT [...] AUTOMATED BLOOD COUNTS AND DIFF.) APPENDIX B-3 Glu 145 mg/dL 70-110 Above high normal [facility] ([facility] NORMAL RANGES Age WBC RBC HGB HCT [...] HCT IS 5% LESS SOURCE FOR DATA: [employer] 1800 OPERATION MANUAL( AUTOMATED BLOOD COUNTS AND DIFF.) APPENDIX B-3 BUN/Creatinine Ratio 24.7 CALC [employer] ([facility] NORMAL RANGES Age WBC RBC HGB HCT MCV PLT Adult M 4.1-10.9 4.20-6.30 12.0-18.0 37.0-51.0 80-97 140-440 Adult F 4.1-10.9 4.04-5.48 12.0-18.0 37.0-51.0 80 140440 0 -1 Yr 5.0-20.0 3.9-5.9 15-18 MV: [...] HCT IS 5% LESS SOURCE FOR DATA: [employer] 1800 OPERATION MANUAL( AUTOMATED BLOOD COUNTS AND DIFF.) APPENDIX B-3 Na 140 mmol/L 136-145 [facility] ([facility] NORMAL RANGES Age WBC RBC HGB HCT MCV PLT Adult M 4.1-10.9 4.20-6.30 12.0-18.0 37.0-51.0 80 140-440 Adult F 4.1-10.9 4.04-5.48 12.0-18.0 37.0-51.0 80 140440 0 -1 Yr 5.0-20.0 3.9-5.9 15-18 MV: [...] AUTOMATED BLOOD COUNTS AND DIFF.) APPENDIX B-3 K 3.7 mmol/L 3.5-5.1 [facility] ([facility] NORMAL RANGES Age WBC RBC HGB HCT [...] AUTOMATED BLOOD COUNTS AND DIFF.) APPENDIX B-3 CA 9.6 mg/dL 8.6-10.2 [facility] ([facility] NORMAL RANGES Age WBC RBC HGB HCT [...] AUTOMATED BLOOD COUNTS AND DIFF.) APPENDIX B-3 Co2 32.0 mmol/L 22.0-29.0 Above high normal [facility] ([facility] NORMAL RANGES Age WBC RBC HGB HCT [...] HCT IS 5% LESS SOURCE FOR DATA: [employer] 1800 OPERATION MANUAL( AUTOMATED BLOOD COUNTS AND DIFF.) APPENDIX B-3 CL 100.2 mmol/L 98.0-107.0 [facility] ([facility] NORMAL RANGES Age WBC RBC HGB HCT [...] HCT IS 5% LESS SOURCE FOR DATA: [employer] 1800 OPERATION MANUAL( AUTOMATED BLOOD COUNTS AND DIFF.) APPENDIX B-3 Alb 4.6 g/dL 3.4-4.8 [facility] ([facility] NORMAL RANGES Age WBC RBC HGB HCT MCV PLT Adult M 4.1-10.9 4.20-6.30 12.0-18.0 37.0-51.0 140-440 Adult F 4.1-10.9 4.04-5.48 12.0-18.0 37.0-51.0 140-440 0 -1 Yr 5.0-20.0 3.9-5.9 15-18 [...] HCT IS 5% LESS SOURCE FOR DATA: [employer] 1800 OPERATION MANUAL( AUTOMATED BLOOD COUNTS AND DIFF.) APPENDIX B-3 A/G Ratio 2.1 CALC [facility] ([facility] NORMAL RANGES Age WBC RBC HGB HCT MCV PLT Adult M 4.1-10.9 4.20-6.30 12.0-18.0 37.0-51.0 140-440 Adult F 4.1-10.9 4.04-5.48 12.0-18.0 37.0-51.0 140-440 0 -1 Yr 5.0-20.0 3.9-5.9 15-18 [...] AUTOMATED BLOOD COUNTS AND DIFF.) APPENDIX B-3 TP 6.8 g/dL 6.6-8.7 [facility] ([facility] NORMAL RANGES Age WBC RBC HGB HCT [...] AUTOMATED BLOOD COUNTS AND DIFF.) APPENDIX B-3 Globulin 2.2 CALC [facility] ([facility] NORMAL RANGES Age WBC RBC HGB HCT [...] AUTOMATED BLOOD COUNTS AND DIFF.) APPENDIX B-3 Ast (Sgot) 21 U/L 0-40 [facility] ([facility] NORMAL RANGES Age WBC RBC HGB HCT [...] AUTOMATED BLOOD COUNTS AND DIFF.) APPENDIX B-3 Alt (SGPT) 27 U/L 0-41 [facility] ([facility] NORMAL RANGES Age WBC RBC HGB HCT [...] HCT IS 5% LESS SOURCE FOR DATA: [employer] 1800 OPERATION MANUAL( AUTOMATED BLOOD COUNTS AND DIFF.) APPENDIX B-3 Alp 98.2 U/L 35-129 [facility] ([facility] NORMAL RANGES Age WBC RBC HGB HCT MCV PLT Adult M 4.1-10.9 4.20-6.30 12.0-18.0 37.0-51.0 80-97 140-440 Adult F 4.1-10.9 4.04-5.48 12.0-18.0 37.0-51.0 140-440 0 -1 Yr 5.0-20.0 3.9-5.9 15-18 [...] HCT IS 5% LESS SOURCE FOR DATA: [employer] 1800 OPERATION MANUAL( AUTOMATED BLOOD COUNTS AND DIFF.) APPENDIX B-3 Osmolality-Calculated 285.3 CALC [facility] ([facility] NORMAL RANGES Age WBC RBC HGB HCT MCV PLT Adult M 4.1-10.9 4.20-6.30 12.0-18.0 37.0-51.0 140-440 Adult F 4.1-10.9 4.04-5.48 12.0-18.0 37.0-51.0 140440 0 -1 Yr 5.0-20.0 3.9-5.9 15-18 MV: [...] AUTOMATED BLOOD COUNTS AND DIFF.) APPENDIX B-3 Tbili 0.68 mg/dL 0.0-1.2 [facility] ([facility] NORMAL RANGES Age WBC RBC HGB HCT [...] AUTOMATED BLOOD COUNTS AND DIFF.) APPENDIX B-3 Anion Gap 11 mmol/L [facility] ([facility] NORMAL RANGES Age WBC RBC HGB HCT [...] AUTOMATED BLOOD COUNTS AND DIFF.) APPENDIX B-3 eGFR 78 # [facility] ( [facility] NORMAL RANGES Age WBC RBC HGB HCT [...] HCT IS 5% LESS SOURCE FOR DATA: [employer] 1800 OPERATION MANUAL( AUTOMATED BLOOD COUNTS AND DIFF.) APPENDIX B-3 eGFR Non-Afr. [place] 67 # [facility] ([facility] NORMAL RANGES Age WBC RBC HGB HCT [...] HCT IS 5% LESS SOURCE FOR DATA: [employer] 1800 OPERATION MANUAL( AUTOMATED BLOOD COUNTS AND DIFF.) APPENDIX B-3 ID Date Data Source [id number] 04/02/2021 03:22:00 PM EDT [facility] ([facility] Name Value Range Interpretation Code Description Data Leeanna rce(s) Supporting Document(s) Creatine kinase [Enzymatic activity/volume] in Serum or Plasma 189 U/L 26-192 [facility] ([facility] NORMAL RANGES Age WBC RBC HGB HCT [...] HCT IS 5% LESS SOURCE FOR DATA: [employer] 1800 OPERATION MANUAL( AUTOMATED BLOOD COUNTS AND DIFF.) APPENDIX B-3 ID Date Data Source [id number] 04/02/2021 03:22:00 PM EDT [facility] ([facility] Name Value Range Interpretation Code Description Data Leeanna rce(s) Supporting Document(s) RBC 4.59 10E6/uL 01.27-6 [facility] ([facility] NORMAL RANGES Age WBC RBC HGB HCT MCV PLT Adult M 4.1-10.9 4.20-6.30 12.0-18.0 37.0-51.0 80 140-440 Adult F 4.1-10.9 4.04-5.48 12.0-18.0 37.0-51.0 80 140-440 0 -1 Yr 5.0-20.0 3.9-5.9 15-18 [...] HCT IS 5% LESS SOURCE FOR DATA: [employer] 1800 OPERATION MANUAL( AUTOMATED BLOOD COUNTS AND DIFF.) APPENDIX B-3 WBC 5.9 10E3/uL 4.1-10.9 [facility] ([facility] NORMAL RANGES Age WBC RBC HGB HCT MCV PLT Adult M 4.1-10.9 4.20-6.30 12.0-18.0 37.0-51.0 80 140-440 Adult F 4.1-10.9 4.04-5.48 12.0-18.0 37.0-51.0 80 140-440 0 -1 Yr 5.0-20.0 3.9-5.9 15-18 [...] HCT IS 5% LESS SOURCE FOR DATA: [employer] 1800 OPERATION MANUAL( AUTOMATED BLOOD COUNTS AND DIFF.) APPENDIX B-3 HCT 42.5 % 37.0-51.0 [facility] ([facility] NORMAL RANGES Age WBC RBC HGB HCT [...] AUTOMATED BLOOD COUNTS AND DIFF.) APPENDIX B-3 MCV 92.6 fL 80.0-97.0 [facility] ([facility] NORMAL RANGES Age WBC RBC HGB HCT [...] AUTOMATED BLOOD COUNTS AND DIFF.) APPENDIX B-3 HGB 14.2 g/dL 12.0-18.0 [facility] ([facility] NORMAL RANGES Age WBC RBC HGB HCT [...] HCT IS 5% LESS SOURCE FOR DATA: [employer] 1800 OPERATION MANUAL( AUTOMATED BLOOD COUNTS AND DIFF.) APPENDIX B-3 MCH 30.9 pg 26.0-32.0 [facility] ([facility] NORMAL RANGES Age WBC RBC HGB HCT [...] HCT IS 5% LESS SOURCE FOR DATA: [employer] 1800 OPERATION MANUAL( AUTOMATED BLOOD COUNTS AND DIFF.) APPENDIX B-3 MCHC 33.4 g/dL 31.0-36.0 [facility] ([facility] NORMAL RANGES Age WBC RBC HGB HCT [...] HCT IS 5% LESS SOURCE FOR DATA: [employer] 1800 OPERATION MANUAL( AUTOMATED BLOOD COUNTS AND DIFF.) APPENDIX B-3 PLT 247 10E3/uL 140-440 [facility] ([facility] NORMAL RANGES Age WBC RBC HGB HCT MCV PLT Adult M 4.1-10.9 4.20-6.30 12.0-18.0 37.0-51.0 80-97 140-440 Adult F 4.1-10.9 4.04-5.48 12.0-18.0 37.0-51.0 80 140-440 0 -1 Yr 5.0-20.0 3.9-5.9 15-18 [...] HCT IS 5% LESS SOURCE FOR DATA: [employer] 1800 OPERATION MANUAL( AUTOMATED BLOOD COUNTS AND DIFF.) APPENDIX B-3 Lym% 20.2 % 10.0-58.5 [facility] ([facility] NORMAL RANGES Age WBC RBC HGB HCT [...] AUTOMATED BLOOD COUNTS AND DIFF.) APPENDIX B-3 RDW-CV 13.3 % 11.5-14.5 [facility] ([facility] NORMAL RANGES Age WBC RBC HGB HCT [...] AUTOMATED BLOOD COUNTS AND DIFF.) APPENDIX B-3 MXD% 10.0 % 0.1-24.0 [facility] ([facility] NORMAL RANGES Age WBC RBC HGB HCT [...] HCT IS 5% LESS SOURCE FOR DATA: [employer] 1800 OPERATION MANUAL( AUTOMATED BLOOD COUNTS AND DIFF.) APPENDIX B-3 Lym# 1.2 10E3/uL 0.6-4.1 [facility] ([facility] NORMAL RANGES Age WBC RBC HGB HCT [...] HCT IS 5% LESS SOURCE FOR DATA: [employer] 1800 OPERATION MANUAL( AUTOMATED BLOOD COUNTS AND DIFF.) APPENDIX B-3 Neut% 69.8 % 37.0-92.0 [facility] ([facility] NORMAL RANGES Age WBC RBC HGB HCT MCV PLT Adult M 4.1-10.9 4.20-6.30 12.0-18.0 37.0-51.0 80-97 140-440 Adult F 4.1-10.9 4.04-5.48 12.0-18.0 37.0-51.0 8097 140-440 0 -1 Yr 5.0-20.0 3.9-5.9 15-18 [...] HCT IS 5% LESS SOURCE FOR DATA: [employer] 1800 OPERATION MANUAL( AUTOMATED BLOOD COUNTS AND DIFF.) APPENDIX B-3 Neut# 4.1 % 2.0-7.8 [facility] ([facility] NORMAL RANGES Age WBC RBC HGB HCT [...] HCT IS 5% LESS SOURCE FOR DATA: [employer] 1800 OPERATION MANUAL( AUTOMATED BLOOD COUNTS AND DIFF.) APPENDIX B-3 MXD# 0.6 10E3/uL 0.0-1.8 [facility] ([facility] NORMAL RANGES Age WBC RBC HGB HCT [...] AUTOMATED BLOOD COUNTS AND DIFF.) APPENDIX B-3 MPV 11.2 fL 9.0-13.0 [facility] ([facility] NORMAL RANGES Age WBC RBC HGB HCT [...] AUTOMATED BLOOD COUNTS AND DIFF.) APPENDIX B-3 ID Date Data Source [id number] 04/02/2021 02:31:00 PM EDT [facility] ([facility] Name Value Range Interpretation Code Description Data Leeanna rce(s) Supporting Document(s) Creatinine, Urine 300 mg/dL 10-300 [facility] ([facility] Alb 10 mg/L 1-30 [facility] ([facility] A/C Ratio Laboratory test result ME D[facility] ([facility] ID Date Data Source [id number] 04/02/2021 02:30:00 PM EDT [facility] ([facility] Name Value Range Interpretation Code Description Data Leeanna rce(s) Supporting Document(s) Hemoglobin A1c/Hemoglobin.total in Blood Laboratory test result 4.50- 6.20 [facility] ([facility] ID Date Data Source [id number] 04/02/2021 02:30:00 PM EDT [facility] ([facility] Name Value Range Interpretation Code Description Data Leeanna rce(s) Supporting Document(s) Appearance of Urine Laboratory test result [facility] ([facility] Color Urine Laboratory test result M [facility] ([facility] Specific [place] Laboratory test result 1.00-1.03 [facility] ([facility] Glucose Urine Laboratory test result [facility] ([facility] PH Urine Laboratory test result 5.0-8.0 [facility] ([facility] Bilirubin.total [Presence] in Urine by Test strip Laboratory test res ult [facility] ([facility] Ketones Laboratory test result [facility] ([facility] Protein Urine Laboratory test result [facility] ([facility] Blood Urine Laboratory test result M [facility] ([facility] Leukocytes Laboratory test result [facility] ([facility] Urobilinogen Laboratory test result 0.2-1.0 [facility] ([facility] Nitrite Laboratory test result [facility] ([facility] Comment 1 Laboratory test result [facility] ([facility] ID Date Data Source [id number] 11/06/2020 03:16:00 PM EST [facility] ([facility] Name Value Range Interpretation Code Description Data Leeanna rce(s) Supporting Document(s) Creatinine, Urine 200 mg/dL 10-300 [facility] ([facility] Alb 10 mg/L 1-30 [facility] ([facility] A/C Ratio Laboratory test result [facility] ([facility] ID Date Data Source [id number] 11/06/2020 03:15:00 PM EST [facility] ([facility] Name Value Range Interpretation Code Description Data Leeanna rce(s) Supporting Document(s) Color Urine Laboratory test result M [facility] ([facility] Appearance of Urine Laboratory test result [facility] ([facility] Specific [place] 1.030 1.00-1.03 [facility] ([facility] PH Urine 5.5 5.0-8.0 [facility] ([facility] Glucose Urine Laboratory test result [facility] ([facility] Ketones Laboratory test result [facility] ([facility] Blood Urine Laboratory test result M [facility] ([facility] Bilirubin.total [Presence] in Urine by Test strip Laboratory test res ult [facility] ([facility] Protein Urine Laboratory test result [facility] ([facility] Urobilinogen 0.2 EU/dl 0.2-1.0 [facility] ([facility] Leukocytes Laboratory test result ME [facility] ([facility] Nitrite Laboratory test result [facility] ([facility] ID Date Data Source [id number] 11/06/2020 02:36:00 PM EST [facility] ([facility] Name Value Range Interpretation Code Description Data Leeanna rce(s) Supporting Document(s) Chol 161 mg/dL 0-200 [facility] ([facility] NORMAL RANGES Age WBC RBC HGB HCT [...] HCT IS 5% LESS SOURCE FOR DATA: [employer] 1800 OPERATION MANUAL( AUTOMATED BLOOD COUNTS AND [...] DESIRABLE: <130 MG/DL <110 MG/DL BORDERLINE-HIGH RISK: 130- 159 MG/DL 110-129 MG/DL HIGH RISK: >160 MG/DL >130 MG/DL *CHILDREN AND ADOLESCENTS REPRESENTS INDIVIDUALA AGED 2-19 YEARS EXCLUSIVE. LDL_C 67 Calc 75-129 Below low normal [facility] ( [facility] NORMAL RANGES Age WBC RBC HGB HCT [...] HCT IS 5% LESS SOURCE FOR DATA: [employer] 1800 OPERATION MANUAL( AUTOMATED BLOOD COUNTS AND [...] DESIRABLE: <130 MG/DL <110 MG/DL BORDERLINE-HIGH RISK: 130- 159 MG/DL 110-129 MG/DL HIGH RISK: >160 MG/DL >130 MG/DL *CHILDREN AND ADOLESCENTS REPRESENTS INDIVIDUALA AGED 2-19 YEARS EXCLUSIVE. Trig 187 mg/dL 40-200 [facility] ([facility] NORMAL RANGES Age WBC RBC HGB HCT [...] HCT IS 5% LESS SOURCE FOR DATA: [employer] 1800 OPERATION MANUAL( AUTOMATED BLOOD COUNTS AND [...] DESIRABLE: <130 MG/DL <110 MG/DL BORDERLINE-HIGH RISK: 130- 159 MG/DL 110-129 MG/DL HIGH RISK: >160 MG/DL >130 MG/DL *CHILDREN AND ADOLESCENTS REPRESENTS INDIVIDUALA AGED 2-19 YEARS EXCLUSIVE. Cholesterol in HDL [Mass/volume] in Serum or Plasma 57 mg/dL 45-65 [facility] ([facility] NORMAL RANGES Age WBC RBC HGB HCT [...] HCT IS 5% LESS SOURCE FOR DATA: [employer] 1800 OPERATION MANUAL( AUTOMATED BLOOD COUNTS AND [...] DESIRABLE: <130 MG/DL <110 MG/DL BORDERLINE-HIGH RISK: 130- 159 MG/DL 110-129 MG/DL HIGH RISK: >160 MG/DL >130 MG/DL *CHILDREN AND ADOLESCENTS REPRESENTS INDIVIDUALA AGED 2-19 YEARS EXCLUSIVE. Cho/HDL Ratio 2.8 CALC [employer] ([facility] NORMAL RANGES Age WBC RBC HGB HCT [...] HCT IS 5% LESS SOURCE FOR DATA: [employer] 1800 OPERATION MANUAL( AUTOMATED BLOOD COUNTS AND [...] DESIRABLE: <130 MG/DL <110 MG/DL BORDERLINE-HIGH RISK: 130- 159 MG/DL 110-129 MG/DL HIGH RISK: >160 MG/DL >130 MG/DL *CHILDREN AND ADOLESCENTS REPRESENTS INDIVIDUALA AGED 2-19 YEARS EXCLUSIVE. ID Date Data Source [id number] 11/06/2020 02:36:00 PM EST [employer] ([facility] Name Value Range Interpretation Code Description Data Leeanna rce(s) Supporting Document(s) Glu 127 mg/dL 70-110 Above high normal [facility] ([facility] NORMAL RANGES Age WBC RBC HGB HCT [...] HCT IS 5% LESS SOURCE FOR DATA: [employer] 1800 OPERATION MANUAL( AUTOMATED BLOOD COUNTS AND [...] DESIRABLE: <130 MG/DL <110 MG/DL BORDERLINE-HIGH RISK: 130- 159 MG/DL 110-129 MG/DL HIGH RISK: >160 MG/DL >130 MG/DL *CHILDREN AND ADOLESCENTS REPRESENTS INDIVIDUALA AGED 2-19 YEARS EXCLUSIVE. BUN 22 mg/dL 8-23 [facility] ([facility] NORMAL RANGES Age WBC RBC HGB HCT [...] HCT IS 5% LESS SOURCE FOR DATA: [employer] 1800 OPERATION MANUAL( AUTOMATED BLOOD COUNTS AND [...] DESIRABLE: <130 MG/DL <110 MG/DL BORDERLINE-HIGH RISK: 130- 159 MG/DL 110-129 MG/DL HIGH RISK: >160 MG/DL >130 MG/DL *CHILDREN AND ADOLESCENTS REPRESENTS INDIVIDUALA AGED 2-19 YEARS EXCLUSIVE. BUN/Creatinine Ratio 17.0 [facility] NORMAL RANGES Age WBC RBC HGB HCT [...] HCT IS 5% LESS SOURCE FOR DATA: [employer] 1800 OPERATION MANUAL( AUTOMATED BLOOD COUNTS AND [...] DESIRABLE: <130 MG/DL <110 MG/DL BORDERLINE-HIGH RISK: 130- 159 MG/DL 110-129 MG/DL HIGH RISK: >160 MG/DL >130 MG/DL *CHILDREN AND ADOLESCENTS REPRESENTS INDIVIDUALA AGED 2-19 YEARS EXCLUSIVE. Creat 1.3 mg/dL 0.5-1.0 Above high normal [facility] ([facility] NORMAL RANGES Age WBC RBC HGB HCT [...] HCT IS 5% LESS SOURCE FOR DATA: [employer] 1800 OPERATION MANUAL( AUTOMATED BLOOD COUNTS AND [...] DESIRABLE: <130 MG/DL <110 MG/DL BORDERLINE-HIGH RISK: 130- 159 MG/DL 110-129 MG/DL HIGH RISK: >160 MG/DL >130 MG/DL *CHILDREN AND ADOLESCENTS REPRESENTS INDIVIDUALA AGED 2-19 YEARS EXCLUSIVE. Na 144 mmol/L 136-145 [facility] ([facility] NORMAL RANGES Age WBC RBC HGB HCT [...] HCT IS 5% LESS SOURCE FOR DATA: [employer]YN 1800 OPERATION MANUAL( AUTOMATED BLOOD COUNTS [...] DESIRABLE: <130 MG/DL <110 MG/DL BORDERLINE-HIGH RISK: 130- 159 MG/DL 110-129 MG/DL HIGH RISK: >160 MG/DL >130 MG/DL *CHILDREN AND ADOLESCENTS REPRESENTS INDIVIDUALA AGED 2-19 YEARS EXCLUSIVE. CL 102.8 mmol/L 98.0-107.0 [facility] NORMAL RANGES Age WBC RBC HGB HCT [...] HCT IS 5% LESS SOURCE FOR DATA: [employer] 1800 OPERATION MANUAL( AUTOMATED BLOOD COUNTS AND [...] DESIRABLE: <130 MG/DL <110 MG/DL BORDERLINE-HIGH RISK: 130- 159 MG/DL 110-129 MG/DL HIGH RISK: >160 MG/DL >130 MG/DL *CHILDREN AND ADOLESCENTS REPRESENTS INDIVIDUALA AGED 2-19 YEARS EXCLUSIVE. K 4.1 mmol/L 3.5-5.1 [facility] ([facility] NORMAL RANGES Age WBC RBC HGB HCT [...] HCT IS 5% LESS SOURCE FOR DATA: [employer] 1800 OPERATION MANUAL( AUTOMATED BLOOD COUNTS AND [...] DESIRABLE: <130 MG/DL <110 MG/DL BORDERLINE-HIGH RISK: 130- 159 MG/DL 110-129 MG/DL HIGH RISK: >160 MG/DL >130 MG/DL *CHILDREN AND ADOLESCENTS REPRESENTS INDIVIDUALA AGED 2-19 YEARS EXCLUSIVE. CA 9.4 mg/dL 8.6-10.2 [facility] ([facility] NORMAL RANGES Age WBC RBC HGB HCT [...] HCT IS 5% LESS SOURCE FOR DATA: [employer]YN 1800 OPERATION MANUAL( AUTOMATED BLOOD COUNTS [...] DESIRABLE: <130 MG/DL <110 MG/DL BORDERLINE-HIGH RISK: 130- 159 MG/DL 110-129 MG/DL HIGH RISK: >160 MG/DL >130 MG/DL *CHILDREN AND ADOLESCENTS REPRESENTS INDIVIDUALA AGED 2-19 YEARS EXCLUSIVE. TP 6.8 g/dL 6.6-8.7 [facility] ([facility] NORMAL RANGES Age WBC RBC HGB HCT [...] HCT IS 5% LESS SOURCE FOR DATA: [employer] 1800 OPERATION MANUAL( AUTOMATED BLOOD COUNTS AND [...] DESIRABLE: <130 MG/DL <110 MG/DL BORDERLINE-HIGH RISK: 130- 159 MG/DL 110-129 MG/DL HIGH RISK: >160 MG/DL >130 MG/DL *CHILDREN AND ADOLESCENTS REPRESENTS INDIVIDUALA AGED 2-19 YEARS EXCLUSIVE. Co2 27.4 mmol/L 22.0-29.0 [facility] ([facility] NORMAL RANGES Age WBC RBC HGB HCT [...] HCT IS 5% LESS SOURCE FOR DATA: [employer] 1800 OPERATION MANUAL( AUTOMATED BLOOD COUNTS AND [...] DESIRABLE: <130 MG/DL <110 MG/DL BORDERLINE-HIGH RISK: 130- 159 MG/DL 110-129 MG/DL HIGH RISK: >160 MG/DL >130 MG/DL *CHILDREN AND ADOLESCENTS REPRESENTS INDIVIDUALA AGED 2-19 YEARS EXCLUSIVE. A/G Ratio 1.9 CALC [facility] ([facility] NORMAL RANGES Age WBC RBC HGB HCT [...] HCT IS 5% LESS SOURCE FOR DATA: [employer]YN 1800 OPERATION MANUAL( AUTOMATED BLOOD COUNTS [...] DESIRABLE: <130 MG/DL <110 MG/DL BORDERLINE-HIGH RISK: 130- 159 MG/DL 110-129 MG/DL HIGH RISK: >160 MG/DL >130 MG/DL *CHILDREN AND ADOLESCENTS REPRESENTS INDIVIDUALA AGED 2-19 YEARS EXCLUSIVE. Alb 4.5 g/dL 3.4-4.8 [facility] ([facility] NORMAL RANGES Age WBC RBC HGB HCT [...] HCT IS 5% LESS SOURCE FOR DATA: [employer] 1800 OPERATION MANUAL( AUTOMATED BLOOD COUNTS AND [...] DESIRABLE: <130 MG/DL <110 MG/DL BORDERLINE-HIGH RISK: 130- 159 MG/DL 110-129 MG/DL HIGH RISK: >160 MG/DL >130 MG/DL *CHILDREN AND ADOLESCENTS REPRESENTS INDIVIDUALA AGED 2-19 YEARS EXCLUSIVE. Alt (SGPT) 55 U/L 0-41 Above high normal [facility] ([facility] NORMAL RANGES Age WBC RBC HGB HCT [...] HCT IS 5% LESS SOURCE FOR DATA: [employer] 1800 OPERATION MANUAL( AUTOMATED BLOOD COUNTS AND [...] DESIRABLE: <130 MG/DL <110 MG/DL BORDERLINE-HIGH RISK: 130- 159 MG/DL 110-129 MG/DL HIGH RISK: >160 MG/DL >130 MG/DL *CHILDREN AND ADOLESCENTS REPRESENTS INDIVIDUALA AGED 2-19 YEARS EXCLUSIVE. Alp 103.2 U/L 35-129 [facility] ([facility] NORMAL RANGES Age WBC RBC HGB HCT [...] HCT IS 5% LESS SOURCE FOR DATA: [employer] 1800 OPERATION MANUAL( AUTOMATED BLOOD COUNTS AND [...] DESIRABLE: <130 MG/DL <110 MG/DL BORDERLINE-HIGH RISK: 130- 159 MG/DL 110-129 MG/DL HIGH RISK: >160 MG/DL >130 MG/DL *CHILDREN AND ADOLESCENTS REPRESENTS INDIVIDUALA AGED 2-19 YEARS EXCLUSIVE. Globulin 2.4 CALC [facility] ([facility] NORMAL RANGES Age WBC RBC HGB HCT [...] HCT IS 5% LESS SOURCE FOR DATA: [employer] 1800 OPERATION MANUAL( AUTOMATED BLOOD COUNTS AND [...] DESIRABLE: <130 MG/DL <110 MG/DL BORDERLINE-HIGH RISK: 130- 159 MG/DL 110-129 MG/DL HIGH RISK: >160 MG/DL >130 MG/DL *CHILDREN AND ADOLESCENTS REPRESENTS INDIVIDUALA AGED 2-19 YEARS EXCLUSIVE. Tbili 0.59 mg/dL 0.0-1.2 [facility] ([facility] NORMAL RANGES Age WBC RBC HGB HCT [...] HCT IS 5% LESS SOURCE FOR DATA: [employer] 1800 OPERATION MANUAL( AUTOMATED BLOOD COUNTS AND [...] DESIRABLE: <130 MG/DL <110 MG/DL BORDERLINE-HIGH RISK: 130- 159 MG/DL 110-129 MG/DL HIGH RISK: >160 MG/DL >130 MG/DL *CHILDREN AND ADOLESCENTS REPRESENTS INDIVIDUALA AGED 2-19 YEARS EXCLUSIVE. Ast (Sgot) 29 U/L 0-40 [facility] ([facility] NORMAL RANGES Age WBC RBC HGB HCT [...] HCT IS 5% LESS SOURCE FOR DATA: [employer] 1800 OPERATION MANUAL( AUTOMATED BLOOD COUNTS AND [...] DESIRABLE: <130 MG/DL <110 MG/DL BORDERLINE-HIGH RISK: 130- 159 MG/DL 110-129 MG/DL HIGH RISK: >160 MG/DL >130 MG/DL *CHILDREN AND ADOLESCENTS REPRESENTS INDIVIDUALA AGED 2-19 YEARS EXCLUSIVE. eGFR 50 # [facility] ( [facility] NORMAL RANGES Age WBC RBC HGB HCT [...] HCT IS 5% LESS SOURCE FOR DATA: [employer] 1800 OPERATION MANUAL( AUTOMATED BLOOD COUNTS AND [...] DESIRABLE: <130 MG/DL <110 MG/DL BORDERLINE-HIGH RISK: 130- 159 MG/DL 110-129 MG/DL HIGH RISK: >160 MG/DL >130 MG/DL *CHILDREN AND ADOLESCENTS REPRESENTS INDIVIDUALA AGED 2-19 YEARS EXCLUSIVE. Anion Gap 18 mmol/L [facility] NORMAL RANGES Age WBC RBC HGB HCT [...] HCT IS 5% LESS SOURCE FOR DATA: [employer] 1800 OPERATION MANUAL( AUTOMATED BLOOD COUNTS AND [...] DESIRABLE: <130 MG/DL <110 MG/DL BORDERLINE-HIGH RISK: 130- 159 MG/DL 110-129 MG/DL HIGH RISK: >160 MG/DL >130 MG/DL *CHILDREN AND ADOLESCENTS REPRESENTS INDIVIDUALA AGED 2-19 YEARS EXCLUSIVE. Osmolality-Calculated 292.3 [facility]C [facility] ([facility] NORMAL RANGES Age WBC RBC HGB HCT [...] HCT IS 5% LESS SOURCE FOR DATA: [employer] DYN 1800 OPERATION MANUAL( AUTOMATED BLOOD COUNTS [...] DESIRABLE: <130 MG/DL <110 MG/DL BORDERLINE-HIGH RISK: 130- 159 MG/DL 110-129 MG/DL HIGH RISK: >160 MG/DL >130 MG/DL *CHILDREN AND ADOLESCENTS REPRESENTS INDIVIDUALA AGED 2-19 YEARS EXCLUSIVE. eGFR Non-Afr. [place] 43 # [facility] ([facility] NORMAL RANGES Age WBC RBC HGB HCT [...] HCT IS 5% LESS SOURCE FOR DATA: [employer] 1800 OPERATION MANUAL( AUTOMATED BLOOD COUNTS AND [...] DESIRABLE: <130 MG/DL <110 MG/DL BORDERLINE-HIGH RISK: 130- 159 MG/DL 110-129 MG/DL HIGH RISK: >160 MG/DL >130 MG/DL *CHILDREN AND ADOLESCENTS REPRESENTS INDIVIDUALA AGED 2-19 YEARS EXCLUSIVE. ID Date Data Source [id number] 11/06/2020 02:36:00 PM EST [facility] ([facility] Name Value Range Interpretation Code Description Data Leeanna rce(s) Supporting Document(s) Creatine kinase [Enzymatic activity/volume] in Serum or Plasma 111 U/L 26-192 [facility] ([facility] NORMAL RANGES Age WBC RBC HGB HCT [...] HCT IS 5% LESS SOURCE FOR DATA: [employer] DYN 1800 OPERATION MANUAL( AUTOMATED BLOOD COUNTS [...] ADOLESCENTS REPRESENTS INDIVIDUALA AGED 2-19 YEARS EXCLUSIVE. ID Date Data Source [id number] 11/06/2020 02:36:00 PM [facility] ([facility] Name Value Range Interpretation Code Description Data Leeanna rce(s) Supporting Document(s) WBC 6.3 10E3/uL 4.1-10.9 [facility] ([facility] NORMAL RANGES Age WBC RBC HGB HCT [...] HCT IS 5% LESS SOURCE FOR DATA: [employer] 1800 OPERATION MANUAL( AUTOMATED BLOOD COUNTS AND [...] ADOLESCENTS REPRESENTS INDIVIDUALA AGED 2-19 YEARS EXCLUSIVE. HCT 43.9 % 37.0-51.0 [facility] ([facility] NORMAL RANGES Age WBC RBC HGB HCT [...] HCT IS 5% LESS SOURCE FOR DATA: [employer] 1800 OPERATION MANUAL( AUTOMATED BLOOD COUNTS AND [...] ADOLESCENTS REPRESENTS INDIVIDUALA AGED 2-19 YEARS EXCLUSIVE. HGB 14.5 g/dL 12.0-18.0 [facility] ([facility] NORMAL RANGES Age WBC RBC HGB HCT [...] HCT IS 5% LESS SOURCE FOR DATA: [employer] 1800 OPERATION MANUAL( AUTOMATED BLOOD COUNTS AND [...] ADOLESCENTS REPRESENTS INDIVIDUALA AGED 2-19 YEARS EXCLUSIVE. RBC 4.79 10E6/uL 4.20-6.30 [facility] NORMAL RANGES Age WBC RBC HGB HCT [...] HCT IS 5% LESS SOURCE FOR DATA: [employer] 1800 OPERATION MANUAL( AUTOMATED BLOOD COUNTS AND [...] ADOLESCENTS REPRESENTS INDIVIDUALA AGED 2-19 YEARS EXCLUSIVE. MCV 91.6 fL 80.0-97.0 [facility] NORMAL RANGES Age WBC RBC HGB HCT [...] HCT IS 5% LESS SOURCE FOR DATA: [employer] 1800 OPERATION MANUAL( AUTOMATED BLOOD COUNTS AND [...] ADOLESCENTS REPRESENTS INDIVIDUALA AGED 2-19 YEARS EXCLUSIVE. MCH 30.3 pg 26.0-32.0 [facility] ([facility] NORMAL RANGES Age WBC RBC HGB HCT [...] HCT IS 5% LESS SOURCE FOR DATA: [employer] 1800 OPERATION MANUAL( AUTOMATED BLOOD COUNTS AND [...] ADOLESCENTS REPRESENTS INDIVIDUALA AGED 2-19 YEARS EXCLUSIVE. PLT 243 10E3/uL 140-440 [facility] ([facility] NORMAL RANGES Age WBC RBC HGB HCT [...] HCT IS 5% LESS SOURCE FOR DATA: [employer] 1800 OPERATION MANUAL( AUTOMATED BLOOD COUNTS AND [...] ADOLESCENTS REPRESENTS INDIVIDUALA AGED 2-19 YEARS EXCLUSIVE. MCHC 33.0 g/dL 31.0-36.0 [facility] ([facility] NORMAL RANGES Age WBC RBC HGB HCT [...] HCT IS 5% LESS SOURCE FOR DATA: [employer] 1800 OPERATION MANUAL( AUTOMATED BLOOD COUNTS AND [...] ADOLESCENTS REPRESENTS INDIVIDUALA AGED 2-19 YEARS EXCLUSIVE. RDW-CV 13.0 % 11.5-14.5 [facility] ([facility] NORMAL RANGES Age WBC RBC HGB HCT [...] HCT IS 5% LESS SOURCE FOR DATA: [employer] 1800 OPERATION MANUAL( AUTOMATED BLOOD COUNTS AND [...] ADOLESCENTS REPRESENTS INDIVIDUALA AGED 2-19 YEARS EXCLUSIVE. Neut% 64.0 % 37.0-92.0 [facility] ([facility] NORMAL RANGES Age WBC RBC HGB HCT [...] HCT IS 5% LESS SOURCE FOR DATA: [employer] 1800 OPERATION MANUAL( AUTOMATED BLOOD COUNTS AND [...] ADOLESCENTS REPRESENTS INDIVIDUALA AGED 2-19 YEARS EXCLUSIVE. MXD% 12.7 % 0.1-24.0 [facility] ([facility] NORMAL RANGES Age WBC RBC HGB HCT [...] ADOLESCENTS REPRESENTS INDIVIDUALA AGED 2-19 YEARS EXCLUSIVE. Lym% 23.3 % 10.0-58.5 [facility] ([facility] NORMAL RANGES Age WBC RBC HGB HCT [...] HCT IS 5% LESS SOURCE FOR DATA: [employer] 1800 OPERATION MANUAL( AUTOMATED BLOOD COUNTS AND [...] ADOLESCENTS REPRESENTS INDIVIDUALA AGED 2-19 YEARS EXCLUSIVE. MXD# 0.8 10E3/uL 0.0-1.8 [facility] ([facility] NORMAL RANGES Age WBC RBC HGB HCT [...] HCT IS 5% LESS SOURCE FOR DATA: [employer] 1800 OPERATION MANUAL( AUTOMATED BLOOD COUNTS AND [...] ADOLESCENTS REPRESENTS INDIVIDUALA AGED 2-19 YEARS EXCLUSIVE. Lym# 1.5 10E3/uL 0.6-4.1 [employer] ([facility] NORMAL RANGES Age WBC RBC HGB HCT [...] HCT IS 5% LESS SOURCE FOR DATA: [employer] DYN 1800 OPERATION MANUAL( AUTOMATED BLOOD COUNTS [...] ADOLESCENTS REPRESENTS INDIVIDUALA AGED 2-19 YEARS EXCLUSIVE. Neut# 4.0 % 2.0-7.8 [facility] ([facility] NORMAL RANGES Age WBC RBC HGB HCT [...] HCT IS 5% LESS SOURCE FOR DATA: [employer] 1800 OPERATION MANUAL( AUTOMATED BLOOD COUNTS AND [...] ADOLESCENTS REPRESENTS INDIVIDUALA AGED 2-19 YEARS EXCLUSIVE. MPV 11.1 fL 9.0-13.0 [facility] NORMAL RANGES Age WBC RBC HGB HCT [...] HCT IS 5% LESS SOURCE FOR DATA: [employer] 1800 OPERATION MANUAL( AUTOMATED BLOOD COUNTS AND [...] ADOLESCENTS REPRESENTS INDIVIDUALA AGED 2-19 YEARS EXCLUSIVE. ID Date Data Source [id number] 07/31/2020 01:45:00 PM EDT [facility] ([facility] Name Value Range Interpretation Code Description Data Leeanna rce(s) Supporting Document(s) Glu 105 mg/dL 70-110 [facility] ([facility] NORMAL RANGES Age WBC RBC HGB HCT [...] HCT IS 5% LESS SOURCE FOR DATA: [employer] 1800 OPERATION MANUAL( AUTOMATED BLOOD COUNTS AND [...] Normal 80 and above >32 mL/min Normal BUN 19 mg/dL 8-23 [facility] ([facility] NORMAL RANGES Age WBC RBC HGB HCT [...] HCT IS 5% LESS SOURCE FOR DATA: [employer] 1800 OPERATION MANUAL( AUTOMATED BLOOD COUNTS AND [...] Normal 80 and above >32 mL/min Normal Creat 0.9 mg/dL 0.5-1.0 [facility] ([facility] NORMAL RANGES Age WBC RBC HGB HCT [...] HCT IS 5% LESS SOURCE FOR DATA: [employer] 1800 OPERATION MANUAL( AUTOMATED BLOOD COUNTS AND [...] Normal 80 and above >32 mL/min Normal BUN/Creatinine Ratio 21.9 [facility] ([facility] NORMAL RANGES Age WBC RBC HGB HCT [...] HCT IS 5% LESS SOURCE FOR DATA: [employer] 1800 OPERATION MANUAL( AUTOMATED BLOOD COUNTS AND [...] Normal 80 and above >32 mL/min Normal Na 139 mmol/L 136-145 [facility] ([facility] NORMAL RANGES Age WBC RBC HGB HCT [...] HCT IS 5% LESS SOURCE FOR DATA: [employer] 1800 OPERATION MANUAL( AUTOMATED BLOOD COUNTS AND [...] Normal 80 and above >32 mL/min Normal CL 99.7 mmol/L 98.0-107.0 [facility] ([facility] NORMAL RANGES Age WBC RBC HGB HCT [...] HCT IS 5% LESS SOURCE FOR DATA: [employer] 1800 OPERATION MANUAL( AUTOMATED BLOOD COUNTS AND [...] Normal 80 and above >32 mL/min Normal K 4.1 mmol/L 3.5-5.1 [facility] ([facility] NORMAL RANGES Age WBC RBC HGB HCT [...] HCT IS 5% LESS SOURCE FOR DATA: [employer] 1800 OPERATION MANUAL( AUTOMATED BLOOD COUNTS AND [...] Normal 80 and above >32 mL/min Normal Co2 28.7 mmol/L 22.0-29.0 [facility] ([facility] NORMAL RANGES Age WBC RBC HGB HCT [...] HCT IS 5% LESS SOURCE FOR DATA: [employer] 1800 OPERATION MANUAL( AUTOMATED BLOOD COUNTS AND [...] Normal 80 and above >32 mL/min Normal TP 6.8 g/dL 6.6-8.7 [facility] ([facility] NORMAL RANGES Age WBC RBC HGB HCT [...] Normal 80 and above >32 mL/min Normal CA 9.7 mg/dL 8.6-10.2 [facility] ([facility] NORMAL RANGES Age WBC RBC HGB HCT [...] HCT IS 5% LESS SOURCE FOR DATA: [employer] 1800 OPERATION MANUAL( AUTOMATED BLOOD COUNTS AND [...] Normal 80 and above >32 mL/min Normal A/G Ratio 1.9 Calc [facility] ([facility] NORMAL RANGES Age WBC RBC HGB HCT [...] HCT IS 5% LESS SOURCE FOR DATA: [employer] 1800 OPERATION MANUAL( AUTOMATED BLOOD COUNTS AND [...] Normal 80 and above >32 mL/min Normal Alb 4.5 g/dL 3.4-4.8 [facility] ([facility] NORMAL RANGES Age WBC RBC HGB HCT [...] HCT IS 5% LESS SOURCE FOR DATA: [employer] 1800 OPERATION MANUAL( AUTOMATED BLOOD COUNTS AND [...] Normal 80 and above >32 mL/min Normal Globulin 2.3 Calc [facility] ([facility] NORMAL RANGES Age WBC RBC HGB HCT [...] HCT IS 5% LESS SOURCE FOR DATA: [employer] 1800 OPERATION MANUAL( AUTOMATED BLOOD COUNTS AND [...] Normal 80 and above >32 mL/min Normal Alp 115.3 U/L 35-129 [facility] ([facility] NORMAL RANGES Age WBC RBC HGB HCT [...] HCT IS 5% LESS SOURCE FOR DATA: [employer] 1800 OPERATION MANUAL( AUTOMATED BLOOD COUNTS AND [...] Normal 80 and above >32 mL/min Normal Ast (Sgot) 26 U/L 0-40 [facility] ([facility] NORMAL RANGES Age WBC RBC HGB HCT [...] HCT IS 5% LESS SOURCE FOR DATA: [employer] 1800 OPERATION MANUAL( AUTOMATED BLOOD COUNTS AND [...] Normal 80 and above >32 mL/min Normal Alt (SGPT) 43 U/L 0-41 Above high normal [facility] ([facility] NORMAL RANGES Age WBC RBC HGB HCT [...] HCT IS 5% LESS SOURCE FOR DATA: [employer] 1800 OPERATION MANUAL( AUTOMATED BLOOD COUNTS AND [...] Normal 80 and above >32 mL/min Normal Osmolality-Calculated 280.0 [facility] ([facility] NORMAL RANGES Age WBC RBC HGB HCT [...] HCT IS 5% LESS SOURCE FOR DATA: [employer] 1800 OPERATION MANUAL( AUTOMATED BLOOD COUNTS AND [...] Normal 80 and above >32 mL/min Normal Tbili 0.69 mg/dL 0.0-1.2 [facility] ([facility] NORMAL RANGES Age WBC RBC HGB HCT [...] HCT IS 5% LESS SOURCE FOR DATA: [employer] 1800 OPERATION MANUAL( AUTOMATED BLOOD COUNTS AND [...] Normal 80 and above >32 mL/min Normal Anion Gap 15 mmol/L [facility] ([facility] NORMAL RANGES Age WBC RBC HGB HCT [...] Normal 80 and above >32 mL/min Normal eGFR 78 # [facility] ( [facility] NORMAL RANGES Age WBC RBC HGB HCT [...] HCT IS 5% LESS SOURCE FOR DATA: [employer] 1800 OPERATION MANUAL( AUTOMATED BLOOD COUNTS AND [...] Normal 80 and above >32 mL/min Normal eGFR Non-Afr. [place] 68 # [facility] ([facility] NORMAL RANGES Age WBC RBC HGB HCT [...] HCT IS 5% LESS SOURCE FOR DATA: [employer] 1800 OPERATION MANUAL( AUTOMATED BLOOD COUNTS AND [...] Normal 80 and above >32 mL/min Normal ID Date Data Source [id number] 07/31/2020 01:45:00 PM [place] [facility] ([facility] Name Value Range Interpretation Code Description Data Leeanna rce(s) Supporting Document(s) HGB 14.7 g/dL 12.0-18.0 [facility] ([facility] NORMAL RANGES Age WBC RBC HGB HCT [...] HCT IS 5% LESS SOURCE FOR DATA: [employer] 1800 OPERATION MANUAL( AUTOMATED BLOOD COUNTS AND [...] Normal 80 and above >32 mL/min Normal RBC 4.82 10E6/uL 4.20-6.30 [facility] ([facility] NORMAL RANGES Age WBC RBC HGB HCT [...] HCT IS 5% LESS SOURCE FOR DATA: [employer] 1800 OPERATION MANUAL( AUTOMATED BLOOD COUNTS AND [...] Normal 80 and above >32 mL/min Normal WBC 5.4 10E3/uL 4.1-10.9 [facility] ([facility] NORMAL RANGES Age WBC RBC HGB HCT [...] HCT IS 5% LESS SOURCE FOR DATA: [employer] 1800 OPERATION MANUAL( AUTOMATED BLOOD COUNTS AND [...] Normal 80 and above >32 mL/min Normal MCV 91.3 fL 80.0-97.0 [facility] ([facility] NORMAL RANGES Age WBC RBC HGB HCT [...] HCT IS 5% LESS SOURCE FOR DATA: [employer] 1800 OPERATION MANUAL( AUTOMATED BLOOD COUNTS AND [...] Normal 80 and above >32 mL/min Normal MCH 30.5 pg 26.0-32.0 [facility] ([facility] NORMAL RANGES Age WBC RBC HGB HCT [...] HCT IS 5% LESS SOURCE FOR DATA: [employer] 1800 OPERATION MANUAL( AUTOMATED BLOOD COUNTS AND [...] Normal 80 and above >32 mL/min Normal HCT 44.0 % 37.0-51.0 [facility] ([facility] NORMAL RANGES Age WBC RBC HGB HCT [...] HCT IS 5% LESS SOURCE FOR DATA: [employer] 1800 OPERATION MANUAL( AUTOMATED BLOOD COUNTS AND [...] Normal 80 and above >32 mL/min Normal PLT 251 10E3/uL 140-440 [employer] ([facility] NORMAL RANGES Age WBC RBC HGB HCT [...] Normal 80 and above >32 mL/min Normal RDW-CV 13.2 % 11.5-14.5 [facility] ([facility] NORMAL RANGES Age WBC RBC HGB HCT [...] HCT IS 5% LESS SOURCE FOR DATA: [employer] 1800 OPERATION MANUAL( AUTOMATED BLOOD COUNTS AND [...] Normal 80 and above >32 mL/min Normal MCHC 33.4 g/dL 31.0-36.0 [facility] ([facility] NORMAL RANGES Age WBC RBC HGB HCT [...] HCT IS 5% LESS SOURCE FOR DATA: [employer] 1800 OPERATION MANUAL( AUTOMATED BLOOD COUNTS AND [...] Normal 80 and above >32 mL/min Normal Lym% 24.0 % 10.0-58.5 [facility] ([facility] NORMAL RANGES Age WBC RBC HGB HCT [...] HCT IS 5% LESS SOURCE FOR DATA: [employer] 1800 OPERATION MANUAL( AUTOMATED BLOOD COUNTS AND [...] Normal 80 and above >32 mL/min Normal MXD% 13.0 % 0.1-24.0 [facility] ([facility] NORMAL RANGES Age WBC RBC HGB HCT [...] HCT IS 5% LESS SOURCE FOR DATA: [employer] 1800 OPERATION MANUAL( AUTOMATED BLOOD COUNTS AND [...] Normal 80 and above >32 mL/min Normal Neut% 63.0 % 37.0-92.0 [facility] ([facility] NORMAL RANGES Age WBC RBC HGB HCT [...] HCT IS 5% LESS SOURCE FOR DATA: [employer] 1800 OPERATION MANUAL( AUTOMATED BLOOD COUNTS AND [...] Normal 80 and above >32 mL/min Normal Lym# 1.3 10E3/uL 0.6-4.1 [facility] ([facility] NORMAL RANGES Age WBC RBC HGB HCT [...] HCT IS 5% LESS SOURCE FOR DATA: [employer] 1800 OPERATION MANUAL( AUTOMATED BLOOD COUNTS AND [...] Normal 80 and above >32 mL/min Normal Neut# 3.4 % 2.0-7.8 [facility] ([facility] NORMAL RANGES Age WBC RBC HGB HCT [...] HCT IS 5% LESS SOURCE FOR DATA: [employer] 1800 OPERATION MANUAL( AUTOMATED BLOOD COUNTS AND [...] Normal 80 and above >32 mL/min Normal MPV 10.9 fL 9.0-13.0 [facility] ([facility] NORMAL RANGES Age WBC RBC HGB HCT [...] HCT IS 5% LESS SOURCE FOR DATA: [employer] 1800 OPERATION MANUAL( AUTOMATED BLOOD COUNTS AND [...] Normal 80 and above >32 mL/min Normal MXD# 0.7 10E3/uL 0.0-1.8 [employer] ([facility] NORMAL RANGES Age WBC RBC HGB HCT [...] HCT IS 5% LESS SOURCE FOR DATA: [employer] 1800 OPERATION MANUAL( AUTOMATED BLOOD COUNTS [...] Normal 80 and above >32 mL/min Normal ID Date Data Source [id number] 07/31/2020 01:45:00 PM EDT MED[facility] ([facility] Name Value Range Interpretation Code Description Data Leeanna rce(s) Supporting Document(s) Hemoglobin A1c/Hemoglobin.total in Blood Laboratory test result 4.50- 6.20 [facility] ([facility] Procedure Social History Code Duration Value Status Description Data Source(s ) Smoking 11/06/2020 12:00:00 AM EST Patient has never smoked co mpleted Patient has never smoked [facility] ([facility] ) Vital Signs ID Date Data Source UNK Name Value Range Interpretation Code Description Data Source(s) Systolic blood pressure 108 mm[Hg] 108 mm[Hg] M EDENT ([facility] Diastolic blood pressure 78 mm[Hg] 78 mm[Hg] [facility] ([facility] Body temperature 97.6 [degF] 97.6 [degF] [facility] ([facility] Heart rate 72 /min 72 /min [facility] ([facility] Respiratory rate 16 /min 16 /min [facility] ( [facility] Body height 66 [in_i] 66 [in_i] [facility] ([facility] 5'6" Body weight 238.00 [lb_av] 238.00 [lb_av] MEDEN T ([facility] [place] body weight 130 [lb_av] 130 [lb_av] MEDEN T ([facility] Body mass index (BMI) [Ratio] 38.4 kg/m2 38.4 k g/m2 [facility] ([facility] Oxygen saturation in Arterial blood by Pulse oximetry 96 % 96 % [facility] ([facility] Body mass index (BMI) [Ratio] 39.1 kg/m2 39.1 k g/m2 [facility] ([facility] Body weight 242.00 [lb_av] 242.00 [lb_av] MEDEN T ([facility] Diastolic blood pressure 80 mm[Hg] 80 mm[Hg] [facility] ([facility] Body temperature 97.3 [degF] 97.3 [degF] [facility] ([facility] Heart rate 76 /min 76 /min [facility] ([facility] Respiratory rate 17 /min 17 /min MED[facility] ( [facility] Body height 66 [in_i] 66 [in_i] [facility] ([facility] 5'6" [place] body weight 130 [lb_av] 130 [lb_av] MEDEN T ([facility] Systolic blood pressure 140 mm[Hg] 140 mm[Hg] M EDENT ([facility] Oxygen saturation in Arterial blood by Pulse oximetry 98 % 98 % [facility] ([facility] ([place]), (Room Air) Body weight 109.771 kg 109.771 kg MED[facility] ([facility] [place], ) Body weight 242.00 [lb_av] 242.00 [lb_av] MEDEN T ([facility]) Body mass index (BMI) [Ratio] 39.1 kg/m2 39.1 k g/m2 MED[facility] ([facility], ) [place] body weight 130 [lb_av] 130 [lb_av] MEDEN T ([facility], ) Diastolic blood pressure 84 mm[Hg] 84 mm[Hg] [facility] ([facility]) Body surface area Derived from formula 2.17 m2 2.17 m2 [facility] ([facility]) Systolic blood pressure 122 mm[Hg] 122 mm[Hg] M EDENT ([facility]) Body height 66 [in_i] 66 [in_i] MED[facility] ([facility]) 5'6" Systolic blood pressure 124 mm[Hg] 124 mm[Hg] M EDENT ([facility] Diastolic blood pressure 72 mm[Hg] 72 mm[Hg] [facility] ([facility] Body temperature 97.4 [degF] 97.4 [degF] [facility] ([facility] Heart rate 74 /min 74 /min [facility] ([facility] Respiratory rate 18 /min 18 /min [facility] ( [facility] Body height 66 [in_i] 66 [in_i] MED[facility] ([facility] 5'6" Body weight 244.00 [lb_av] 244.00 [lb_av] MEDEN T ([facility] [place] body weight 130 [lb_av] 130 [lb_av] MEDEN T ([facility] Body mass index (BMI) [Ratio] 39.4 kg/m2 39.4 k g/m2 [facility] ([facility] Oxygen saturation in Arterial blood by Pulse oximetry 98 % 98 % [facility] ([facility] Body weight 215.00 [lb_av] 215.00 [lb_av] MEDEN T ([facility]) Body weight 97.524 kg 97.524 kg [facility] ([facility]) Body height 66 [in_i] 66 [in_i] [facility] ([facility]) 5'6" Body mass index (BMI) [Ratio] 34.7 kg/m2 34.7 k g/m2 [facility] ([facility]) Body surface area Derived from formula 2.06 m2 2.06 m2 [facility] ([facility]) Diastolic blood pressure 88 mm[Hg] 88 mm[Hg] [facility] ([facility] Respiratory rate 18 /min 18 /min [facility] ( [facility] Body height 66 [in_i] 66 [in_i] [facility] ([facility] 5'6" Body weight 247.00 [lb_av] 247.00 [lb_av] MEDEN T ([facility] [place] body weight 130 [lb_av] 130 [lb_av] MEDEN T ([facility] Body mass index (BMI) [Ratio] 39.9 kg/m2 39.9 k g/m2 [facility] ([facility] Oxygen saturation in Arterial blood by Pulse oximetry 97 % 97 % [facility] ([facility] Body temperature 97.5 [degF] 97.5 [degF] [facility] ([facility] Heart rate 66 /min 66 /min [facility] ([facility] Systolic blood pressure 136 mm[Hg] 136 mm[Hg] M EDENT ([facility] Body mass index (BMI) [Ratio] 39.9 kg/m2 39.9 k g/m2 [facility] ([facility] Body height 66 [in_i] 66 [in_i] [facility] ([facility] 5'6" Body weight 247.00 [lb_av] 247.00 [lb_av] MEDEN T ([facility] [place] body weight 130 [lb_av] 130 [lb_av] MEDEN T ([facility] Oxygen saturation in Arterial blood by Pulse oximetry 99 % 99 % [facility] ([facility] Body temperature 97.7 [degF] 97.7 [degF] [facility] ([facility] Heart rate 66 /min 66 /min [facility] ([facility] Respiratory rate 16 /min 16 /min [facility] ( [facility] Systolic blood pressure 128 mm[Hg] 128 mm[Hg] M EDENT ([facility] Diastolic blood pressure 92 mm[Hg] 92 mm[Hg] AVELINO ([facility]
--- NOTE | 2021-07-27 08:00 | ROOR ---
Patient Name: Yanni Lee Procedure Date: 07/27/2021 7:36 AM Date of : 1955 Age: 66 Room: [facility] Gender: Female Note Status: Finalized Procedure: Colonoscopy Indications: High risk colon cancer surveillance: Personal history of colonic polyps, Family history of colon cancer in a first-degree relative before age 60 years, Family history of colon cancer in multiple first-degree relatives Providers: Zachery Ramirez MD Referring MD: FLOWER IRIZARRY DO Requesting Provider: Medicines: Monitored Anesthesia Care Complications: No immediate complications. Procedure: Pre-Anesthesia Assessment: - The heart rate, respiratory rate, oxygen saturations, blood pressure, adequacy of pulmonary ventilation, and response to care were monitored throughout the procedure. The Colonoscope was introduced through the anus and advanced to the terminal ileum, with identification of the appendiceal orifice and IC valve. The colonoscopy was performed without difficulty. The patient tolerated the procedure well. The quality of the bowel preparation was good. Findings: The perianal and digital rectal examinations were normal. Two sessile polyps were found in the sigmoid colon and splenic flexure. The polyps were 3 to 5 mm in size. These polyps were removed with a cold snare. Resection and retrieval were complete. The exam was otherwise without abnormality on direct and retroflexion views. Impression: - Two 3 to 5 mm polyps in the sigmoid colon and at the splenic flexure, removed with a cold snare. Resected and retrieved. - The examination was otherwise normal on direct and retroflexion views. Recommendation: - Repeat colonoscopy in 5 years for surveillance. Procedure Code(s): --- Professional --- 14773, Colonoscopy, flexible; with removal of tumor(s), polyp(s), or other lesion(s) by snare technique Diagnosis Code(s): --- Professional --- Z86.010, Personal history of colonic polyps Z80.0, Family history of malignant neoplasm of digestive organs K63.5, Polyp of colon CPT copyright 2019 [employer]. All rights reserved. The codes documented in this report are preliminary and upon boring machine operator horizontal review may be revised to meet current compliance requirements. Zachery Ramirez MD Zachery Ramirez MD 07/27/2021 8:00:13 AM Electronically signed by Zachery Ramirez MD Number of Addenda: 0 Note Initiated On: 07/27/2021 7:36 AM Estimated Blood Loss: Estimated blood loss: none.
[2021-07-27 08:20] VITALS: BP 121/78
== END 2021-07-27 09:00 | disposition home or self-care (01) ==
LOC: M OPP 06:49
PROVIDERS: ATTEND Internal Medicine Gastroenterology
DX: Z12.11 Encounter for screening for malignant neoplasm of colon (principal); Z86.010 Personal history of colon polyps; Z80.0 Family history of malignant neoplasm of digestive organs; K63.5 Polyp of colon; Z79.899 Other long term (current) drug therapy; Z88.2 Allergy status to sulfonamides; Z88.8 Allergy status to other drugs, medicaments and biological substances; Z91.048 Other nonmedicinal substance allergy status; Z80.51 Family history of malignant neoplasm of kidney

== ENCOUNTER → 2023-06-23 | Outpatient (CLI) | payer MEDICARE, BC, OTHER ==
[~2023-06-23] MED LIST changes: -NS 1,000 ML IV ONE
[2023-06-23 12:09] LABS: APPEARANCE, URINE CLEAR (CLEAR); BACTERIA, URINE AUTO NEGATIVE (NEGATIVE); BILIRUBIN, URINE AUTO NEGATIVE (NEGATIVE); BLOOD, URINE BLOOD NEGATIVE (NEGATIVE); COLOR, URINE YELLOW (YELLOW); GLUCOSE, URINE (UA) AUTO NEGATIVE (NEGATIVE); KETONE, URINE AUTO NEGATIVE (NEGATIVE); LEUKOCYTE ESTERASE, URINE AUTO NEGATIVE (NEGATIVE); MUCUS, URINE SMALL (NEGATIVE); NITRITE, URINE AUTO NEGATIVE (NEGATIVE); PROTEIN, URINE AUTO NEGATIVE (NEGATIVE); RBC, URINE AUTO 0 /HPF (0-3); SPECIFIC GRAVITY URINE AUTO 1.017 (1.002-1.035); SQUAMOUS EPITHELIAL CELL UR AU 0 /HPF (0-6); UROBILINOGEN, URINE AUTO 0.2 mg/dL (0.0-2.0); WBC, URINE AUTO 0 /HPF (0-3)
[2023-06-23 12:11] LABS: BASO % 0.3 % (0.0-1.0); EOS # 0.2 10^3/uL (0.0-0.5); EOS % 3.8 % (0.0-3.0); HEMATOCRIT 45.2 % (36.0-47.0); HEMOGLOBIN 14.3 g/dl (12.0-15.5); LYMPH # 1.4 10^3/uL (1.5-5.0); LYMPH % 22.2 % (24.0-44.0); MEAN CORPUSCULAR HEMOGLOBIN 29.9 pg (27.0-33.0); MEAN CORPUSCULAR HGB CONC 31.6 g/dl (32.0-36.5); MEAN CORPUSCULAR VOLUME 94.4 fl (80.0-96.0); MONO # 0.6 10^3/uL (0.0-0.8); MONO % 8.9 % (2.0-8.0); NEUTROPHILS # 4.1 10^3/uL (1.5-8.5); NEUTROPHILS % 64.5 % (36.0-66.0); PLATELET COUNT, AUTOMATED 227 10^3/uL (150-450); RED BLOOD COUNT 4.79 10^6/uL (4.00-5.40); WHITE BLOOD COUNT 6.3 10^3/uL (4.0-10.0)
[2023-06-23 12:38] LABS: ALBUMIN 3.8 G/DL (3.2-5.2); ALKALINE PHOSPHATASE 107 U/L (46-116); ALT/SGPT 41 U/L (7.0-40); AST/SGOT 20 U/L (<34); BILIRUBIN,TOTAL 0.6 MG/DL (0.3-1.2); BLOOD UREA NITROGEN 22 MG/DL (9-23); CALCIUM LEVEL 8.9 MG/DL (8.3-10.6); CARBON DIOXIDE LEVEL 32 MMOL/L (20-31); CHLORIDE LEVEL 105 MMOL/L (98-107); CREATININE FOR GFR 0.77 MG/DL (0.55-1.30); GLOMERULAR FILTRATION RATE > 60.0 (>45); GLUCOSE, FASTING 94 MG/DL (74-106); POTASSIUM SERUM 4.2 MMOL/L (3.5-5.1); SODIUM LEVEL 142 MMOL/L (136-145); TOTAL PROTEIN 6.7 G/DL (5.7-8.2)
== END ==
LOC: M WUC 09:59
PROVIDERS: ATTEND Family Medicine
DX: I10 Essential (primary) hypertension (principal); E04.2 Nontoxic multinodular goiter; R73.09 Other abnormal glucose

== ENCOUNTER → 2024-01-25 | Outpatient (CLI) | payer MEDICARE, BC, OTHER ==
[2024-01-25 16:48] LABS: AMORPHOUS SEDIMENT SMALL (NEGATIVE); APPEARANCE, URINE TURBID (CLEAR); BACTERIA, URINE AUTO NEGATIVE (NEGATIVE); BILIRUBIN, URINE AUTO NEGATIVE (NEGATIVE); BLOOD, URINE BLOOD NEGATIVE (NEGATIVE); COLOR, URINE YELLOW (YELLOW); GLUCOSE, URINE (UA) AUTO NEGATIVE (NEGATIVE); KETONE, URINE AUTO NEGATIVE (NEGATIVE); LEUKOCYTE ESTERASE, URINE AUTO 1+ (NEGATIVE); MUCUS, URINE SMALL (NEGATIVE); NITRITE, URINE AUTO NEGATIVE (NEGATIVE); PROTEIN, URINE AUTO NEGATIVE (NEGATIVE); RBC, URINE AUTO 0 /HPF (0-3); SPECIFIC GRAVITY URINE AUTO 1.023 (1.002-1.035); SQUAMOUS EPITHELIAL CELL UR AU 2 /HPF (0-6); UROBILINOGEN, URINE AUTO 0.2 mg/dL (0.0-2.0); WBC, URINE AUTO 5 /HPF (0-3)
[2024-01-25 17:01] LABS: ALBUMIN 3.6 G/DL (3.2-5.2); ALKALINE PHOSPHATASE 116 U/L (46-116); ALT/SGPT 41 U/L (7.0-40); AST/SGOT 23 U/L (<34); BILIRUBIN,TOTAL 0.6 MG/DL (0.3-1.2); BLOOD UREA NITROGEN 27 MG/DL (9-23); CALCIUM LEVEL 9.2 MG/DL (8.3-10.6); CARBON DIOXIDE LEVEL 34 MMOL/L (20-31); CHLORIDE LEVEL 107 MMOL/L (98-107); CREATININE FOR GFR 0.85 MG/DL (0.55-1.30); GLOMERULAR FILTRATION RATE > 60.0 (>45); GLUCOSE, FASTING 116 MG/DL (74-106); POTASSIUM SERUM 4.6 MMOL/L (3.5-5.1); SODIUM LEVEL 144 MMOL/L (136-145); TOTAL PROTEIN 6.8 G/DL (5.7-8.2)
[2024-01-25 17:13] LABS: BASO % 0.5 % (0.0-1.0); EOS # 0.2 10^3/uL (0.0-0.5); EOS % 3.2 % (0.0-3.0); HEMATOCRIT 46.1 % (36.0-47.0); HEMOGLOBIN 14.9 g/dl (12.0-15.5); LYMPH # 1.6 10^3/uL (1.5-5.0); LYMPH % 25.6 % (24.0-44.0); MEAN CORPUSCULAR HEMOGLOBIN 30.4 pg (27.0-33.0); MEAN CORPUSCULAR HGB CONC 32.3 g/dl (32.0-36.5); MEAN CORPUSCULAR VOLUME 94.1 fl (80.0-96.0); MONO # 0.6 10^3/uL (0.0-0.8); MONO % 9.6 % (2.0-8.0); NEUTROPHILS # 3.8 10^3/uL (1.5-8.5); NEUTROPHILS % 60.8 % (36.0-66.0); PLATELET COUNT, AUTOMATED 236 10^3/uL (150-450)
[2024-01-25 17:27] LABS: CREATININE, URINE 137.9 MG/DL; MALB URINE SIEMENS < 3.0 MG/L; MAU/CREAT RATIO 2.1 MCG/MG (0.0-30.0)
[2024-01-26 09:07] LABS: WHITE BLOOD COUNT 6.3 10^3/uL (4.0-10.0)
== END ==
LOC: M WUC 10:42
PROVIDERS: ATTEND Family Medicine
DX: I10 Essential (primary) hypertension (principal); E04.2 Nontoxic multinodular goiter